=== PATIENT | female | born 2000 | race Caucasian/White ===

== ENCOUNTER 2018-08-24 13:33 | Emergency (ER) | payer OTHER, SELFPAY ==
[2018-08-24 13:36] VITALS: BP 149/88; PULSE 102; RESP 18; TEMP 36.7; O2SAT 99
--- NOTE | 2018-08-24 14:02 | DI.US.S_ITS ---
PROCEDURE: US PELVIC COMPLETE INDICATIONS: PAIN; POSITIVE URINE TECHNIQUE: Real-time scanning was performed of the pelvic organs, with image documentation. Additional endovaginal scanning was necessary due to incomplete visualization of the adnexal and endometrial structures by transabdominal scanning. COMPARISON: None. FINDINGS: Transabdominal scanning: Limited scanning through the kidneys shows no hydronephrosis. No pathologic free abdominal or pelvic fluid. Endovaginal scanning: Uterus: Uterus is normal in size at 6.9 x 4.2 x 4.7 cm. The endometrium measures 10.3 mm in combined thickness. Ovaries: 21 mm isoechoic solid mass with peripheral vascularity within the left ovary. Right ovary within normal limits. IMPRESSION: No evidence of intrauterine . 21 mm solid appearing nodule within the left ovary. Ectopic cannot be excluded. Follow up up ultrasound in 6 weeks is recommended to ensure resolution and exclude underlying malignancy. Dictated by: Edward Aranda M.D. on 08/24/2018 at 14:45 Approved by: Edward Aranda M.D. on 08/24/2018 at 14:47
--- NOTE | 2018-08-24 14:06 | ED.ABDPAIN ---
HPI - Abdominal Pain <ANNA Elias - Last Filed: 08/24/18 21:19> General Chief Complaint: Abdominal Pain Stated Complaint: R side abdominal pain Time Seen by Provider: 08/24/18 13:49 Source: patient Mode of arrival: ambulatory Limitations: no limitations History of Present Illness HPI narrative: 18-year-old female presents emergency department with her friend complaining of right-sided intermittent 8/10 stabbing abdominal pain for the past 2 months that lasts a few minutes to a few hours. Pain occurs when she is standing and is relieved when she sits down. Reports feeling nauseated for the past month with occasional increase 2/10 in dull achy headache better relieved with Tylenol and ibuprofen and only last a few hours. Patient also reports increase in vaginal discharge that is yellow and has a different odor but denies it being pay she or bowel. Patient denies dizziness, change in vision, chest pain, shortness of breath, vomiting or bowel changes, swelling in legs, or fevers or chills. Related Data Previous Rx's Medication Instructions Recorded metronidazole 500 mg PO BID 7 Days #14 tab 08/24/18 Allergies Allergy/AdvReac Type Severity Reaction Status Date / Time No Known Drug Allergies Allergy Verified 08/24/18 13:45 Review of Systems <ANNA Elias - Last Filed: 08/24/18 21:19> Review of Systems REVIEW OF SYSTEMS: GENERAL: Denies fever or chills. HENT: No head trauma, hearing loss or sore throat. EYES: No loss of vision, double vision, eye pain, or irritation. CARDIOVASCULAR: No chest pain or syncope. RESPIRATORY: No shortness of breath or cough. GASTROINTESTINAL: Complains of abdominal pain, see HPI. GENITOURINARY: Complains of right lower quadrant pain that MUSCULOSKELETA radiates to the back, see HPI. L: No pain, weakness, or deformities. INTEGUMENTARY: No rash, lesions, or pruritus. NEURO: No numbness, tingling, memory loss, or confusion. PSYCH: No behavior or mood changes. PFSH <ANNA Elias - Last Filed: 08/24/18 21:19> Medical History No significant medical problems (Acute) Social History Smoking Status: Current some day smoker Social History Smoking Status: Current some day smoker Exam <ANNA Elias - Last Filed: 08/24/18 21:19> Initial Vital Signs Initial Vital Signs: Vital Signs Temperature 98.1 F 08/24/18 13:36 Pulse Rate 102 H 08/24/18 13:36 Respiratory Rate 18 08/24/18 13:36 Blood Pressure 149/88 H 08/24/18 13:36 Pulse Oximetry 99 08/24/18 13:36 PHYSICAL EXAMINATION: GENERAL: Alert, and cooperative. Answers questions promptly and appropriately. Vital signs noted. HENT: Normocephalic, atraumatic. . EYES: PERRLA, conjunctiva pink, sclera white, no periorbital swelling. LYMPH: No lymphadenopathy. CARDIOVASCULAR: S1 and S2 sounds normal. Regular rate and rhythm, no murmurs, clicks, or bruits. No pedal edema. RESPIRATORY: Normal respiratory rate, trachea midline, airway patent. No stridor, nasal flaring or accessory muscle use. Lungs are clear in all robbins without wheeze, rhonchi, or crackles. GASTROINTESTINAL: Bowel sounds normoactive. Right lower quadrant tenderness with deep palpation, Abdomen is soft. No organomegaly but difficult to appreciate due to body habitus. PELVIC EXAM: Speculum and bimanual exam was performed with Maria A RN in the room as well as patient's friend per request. Vaginal rugae present, moderate amount of stick chunky discharge in the vaginal canal as well as around the cervix. Increased redness around cervix posterior vaginal canal. No cervical motion tenderness and axial tenderness, ovaries were not palpated, no tenderness to right or left pelvic area during minute exam. Vaginal swabs were obtained. Patient tolerated the exam well. MUSCULOSKELETAL: Normal gait and coordination. Equal tone and mass bilaterally. EXTREMITIES: CMS intact. Moves all extremities. SKIN: Warm, dry, soft, appropriate color for ethnicity. No lesions, rashes, or wounds. NEURO: Alert and Oriented X 3. Good coordination. No ataxia, or sensory deficits, or cognitive issues. PSYCH: Appropriate affect and mood. <Olivia Nicole DO - Last Filed: 08/25/18 19:44> Initial Vital Signs Initial Vital Signs: Vital Signs Temperature 98.1 F 08/24/18 13:36 Pulse Rate 102 H 08/24/18 13:36 Respiratory Rate 18 08/24/18 13:36 Blood Pressure 149/88 H 08/24/18 13:36 Pulse Oximetry 99 08/24/18 13:36 Course <ANNA Elias - Last Filed: 08/24/18 21:19> Orders Ordered: ED Orders 08/24/18 14:00 Complete Blood Count AUTO DIFF Stat Comprehensive Metabolic Panel Stat HCG Quantitative Stat Lipase Stat 08/24/18 14:02 US pelvic complete Stat 08/24/18 15:36 GC Screen Stat Wet Prep Tric BV [place] Stat Consultations Consultation #1: Patient staffed with Dr. Nicole. Vital Signs - 8 hr 08/24/18 13:36 08/24/18 15:43 08/24/18 16:50 Temperature 98.1 F Pulse Rate 102 H 99 H 94 H Respiratory Rate 18 18 Blood Pressure 149/88 H 130/73 Blood Pressure [Right Arm] 128/72 Pulse Oximetry 99 99 97 <Olivia Nicole DO - Last Filed: 08/25/18 19:44> Orders Ordered: ED Orders 08/24/18 14:00 Complete Blood Count AUTO DIFF Stat Comprehensive Metabolic Panel Stat HCG Quantitative Stat Lipase Stat 08/24/18 14:02 US pelvic complete Stat 08/24/18 15:36 GC Screen Stat Wet Prep Tric BV [place] Stat Vital Signs - 8 hr 08/24/18 13:36 08/24/18 15:43 08/24/18 16:50 Temperature 98.1 F Pulse Rate 102 H 99 H 94 H Respiratory Rate 18 18 Blood Pressure 149/88 H 130/73 Blood Pressure [Right Arm] 128/72 Pulse Oximetry 99 99 97 MDM - Abdominal Pain <ANNA Elias - Last Filed: 08/24/18 21:19> Medical Records Attestation: I reviewed the patient's medical records. Lab Data Attestation: I reviewed the patient's lab results. Result diagrams: 08/24/18 14:00 08/24/18 14:00 Lab Results 08/24/18 08/24/18 08/24/18 Range/Units 14:00 14:00 14:00 WBC 10.4 (4.5-11.0) X10^3/uL RBC 4.42 (4.0-5.2) X10^6/uL Hgb 13.5 (12.0-16.0) g/dL Hct 39.9 (36-46) % MCV 90.4 (80-100) fL MCH 30.5 (26-34) PG MCHC 33.7 (30-36) % RDW 12.4 (11.6-14.8) % Plt Count 340 (150-400) X10^3/uL Neut % (Auto) 67.4 (50-75) % Lymph % (Auto) 21.5 L (25-40) % [place] % (Auto) 8.2 (3-14) % Eos % (Auto) 2.5 (2-4) % Baso % (Auto) 0.4 (0-2) % Neut # (Auto) 7000 (9482-0386) /uL Lymph # (Auto) 2200 (4692-3698) /uL [place] # (Auto) 900 (0-900) /uL Eos # (Auto) 300 (0-450) /uL Baso # (Auto) 0 (0-100) /uL Sodium 140 (137-145) mmol/L Potassium 4.2 (3.4-5.1) mmol/L Chloride 104 (98-107) mmol/L Carbon Dioxide 27 (22-32) mmol/L BUN 9 (7-17) mg/dL Creatinine 0.60 (0.52-1.04) mg/dL Estimated GFR > 60.0 (>60) mL/min BUN/Creatinine Ratio 15.0 (6-22) Glucose 112 H (70-100) mg/dL Calcium 9.4 (8.4-10.2) mg/dL Total Bilirubin 0.3 (0.2-1.3) mg/dL AST 25 (14-36) IU/L ALT 30 (9-52) IU/L Alkaline Phosphatase 76 (38-126) U/L Total Protein 7.5 (6.3-8.2) g/dL Albumin 4.2 (3.5-5.0) g/dL Globulin 3.3 (1.7-4.1) g/dL Albumin/Globulin Ratio 1.3 (1.0-2.8) Lipase 97 (23-300) U/L HCG, Quant < 2.39 mIU/mL Point of care testing: Point of Care Testing Test Results Positive Urine Dip Bedside Urine Glucose Negative Bedside Urine Bilirubin - Negative Bedside Urine Ketone - Negative Urine Specific [place] 1.015 Bedside Urine Occult Blood - Negative Bedside Urine pH 6.5 Bedside Urine Protein - Negative Bedside Urine Urobilinogen - Negative Bedside Urine Nitrite - Negative Bedside Urine Leukocytes - Negative Esterase Imaging Data US - abdomen: Radiologist's impression: [address] [id number] Ultrasound Report Signed Patient: Deborah Flynn MMR#: [id number] : 2000Acct:[id number] Age/Sex: te of Service: 08/24/18 Loc: ED Accession Number: [id number] Procedure: US pelvic complete Ordering Provider: Arpita Landrum PROCEDURE: US PELVIC COMPLETE INDICATIONS: PAIN; POSITIVE URINE TECHNIQUE: Real-time scanning was performed of the pelvic organs, with image documentation. Additional endovaginal scanning was necessary due to incomplete visualization of the adnexal and endometrial structures by transabdominal scanning. COMPARISON: None. FINDINGS: Transabdominal scanning: Limited scanning through the kidneys shows no hydronephrosis. No pathologic free abdominal or pelvic fluid. Endovaginal scanning: Uterus: Uterus is normal in size at 6.9 x 4.2 x 4.7 cm. The endometrium measures 10.3 mm in combined thickness. Ovaries: 21 mm isoechoic solid mass with peripheral vascularity within the left ovary. Right ovary within normal limits. IMPRESSION: No evidence of intrauterine . 21 mm solid appearing nodule within the left ovary. Ectopic cannot be excluded. Follow up up ultrasound in 6 weeks is recommended to ensure resolution and exclude underlying malignancy. Dictated by: Edward Aranda M.D. on 08/24/2018 at 14:45 Approved by: Edward Aranda M.D. on 08/24/2018 at 14:47 MDM Narrative Medical decision making narrative: Unsure exact cause of patient's right quadrant pain. Low suspicion for tubal (serum hCG was negative (this was test was done as the urine hcg was barely positive), undetermined ovarian mass was on patient's left side (not with the pain was), patient has a positive for bacterial vaginosis, no adnexal or cervical motion tenderness, and patient states pain is intermittent for months. Detailed instructions for follow-up about mass were given to the patient. Patient's exam and lab tests are positive for clue cells indicating a high probability of bacterial vaginosis, Bactrim was used as patient's serum HCG was negative. Strict return precautions given. Also discussed control options with patient and suggest that if she wants reduce the risk of that she might consider switching to a better type of control as it is difficult for her to take pills on a regular basis, additionally suggested if she was hoping to get she should start taking vitamins. <Olivia Nicole, DO - Last Filed: 08/25/18 19:44> Lab Data Lab Results 08/24/18 08/24/18 08/24/18 Range/Units 14:00 14:00 14:00 WBC 10.4 (4.5-11.0) X10^3/uL RBC 4.42 (4.0-5.2) X10^6/uL Hgb 13.5 (12.0-16.0) g/dL Hct 39.9 (36-46) % MCV 90.4 (80-100) fL MCH 30.5 (26-34) PG MCHC 33.7 (30-36) % RDW 12.4 (11.6-14.8) % Plt Count 340 (150-400) X10^3/uL Neut % (Auto) 67.4 (50-75) % Lymph % (Auto) 21.5 L (25-40) % [place] % (Auto) 8.2 (3-14) % Eos % (Auto) 2.5 (2-4) % Baso % (Auto) 0.4 (0-2) % Neut # (Auto) 7000 (0673-9742) /uL Lymph # (Auto) 2200 (3409-7735) /uL [place] # (Auto) 900 (0-900) /uL Eos # (Auto) 300 (0-450) /uL Baso # (Auto) 0 (0-100) /uL Sodium 140 (137-145) mmol/L Potassium 4.2 (3.4-5.1) mmol/L Chloride 104 (98-107) mmol/L Carbon Dioxide 27 (22-32) mmol/L BUN 9 (7-17) mg/dL Creatinine 0.60 (0.52-1.04) mg/dL Estimated GFR > 60.0 (>60) mL/min BUN/Creatinine Ratio 15.0 (6-22) Glucose 112 H (70-100) mg/dL Calcium 9.4 (8.4-10.2) mg/dL Total Bilirubin 0.3 (0.2-1.3) mg/dL AST 25 (14-36) IU/L ALT 30 (9-52) IU/L Alkaline Phosphatase 76 (38-126) U/L Total Protein 7.5 (6.3-8.2) g/dL Albumin 4.2 (3.5-5.0) g/dL Globulin 3.3 (1.7-4.1) g/dL Albumin/Globulin Ratio 1.3 (1.0-2.8) Lipase 97 (23-300) U/L HCG, Quant < 2.39 mIU/mL Point of care testing: Point of Care Testing Test Results Positive Urine Dip Bedside Urine Glucose Negative Bedside Urine Bilirubin - Negative Bedside Urine Ketone - Negative Urine Specific [place] 1.015 Bedside Urine Occult Blood - Negative Bedside Urine pH 6.5 Bedside Urine Protein - Negative Bedside Urine Urobilinogen - Negative Bedside Urine Nitrite - Negative Bedside Urine Leukocytes - Negative Esterase Discharge Plan Departure Patient Disposition: Home Clinical Impression: Bacterial vaginosis, Abnormal ultrasound Discharge Date/Time: 08/24/18 16:50 Interventions: ED Discharge Assessment Last Done: 08/24/18 16:50 Instructions: DI for Bacterial Vaginosis Activity Restrictions/Additional Instructions: Thank you for entrusting me with your care today. As discussed, her ultrasound showed a mass on your left ovary, however a follow-up ultrasound in 6 weeks is recommended. Your blood tests are were negative for , despite your urine being positive it is highly unlikely that you are not at this time. However, continue to monitor your symptoms. There tests were positive for bacterial vaginosis, and I prescribed you antibiotic please take this for 7 days. Follow up with her primary care provider next week. Return to the emergency department if he develops severe abdominal pain, significant vaginal bleeding, dizziness, syncope, fever and chills, or chest pain. Prescriptions: New metronidazole 500 mg tablet 500 mg PO BID 7 Days Qty: 14 RF: 0 <Olivia Nicole DO - Last Filed: 08/25/18 19:44> Cosign ED Attending Cosignature Attestation: I was immediately available in the department for consultation. Documentation has been reviewed. I agree with assessment and plan.
--- NOTE | 2018-08-24 14:09 | ED_ITS ---
HPI - Abdominal Pain <ANNA Elias - Last Filed: 08/24/18 21:19> General Chief Complaint: Abdominal Pain Stated Complaint: R side abdominal pain Time Seen by Provider: 08/24/18 13:49 Source: patient Mode of arrival: ambulatory Limitations: no limitations History of Present Illness HPI narrative: 18-year-old female presents emergency department with her friend complaining of right-sided intermittent 8/10 stabbing abdominal pain for the past 2 months that lasts a few minutes to a few hours. Pain occurs when she is standing and is relieved when she sits down. Reports feeling nauseated for the past month with occasional increase 2/10 in dull achy headache better relieved with Tylenol and ibuprofen and only last a few hours. Patient also reports increase in vaginal discharge that is yellow and has a different odor but denies it being pay she or bowel. Patient denies dizziness, change in vision, chest pain, shortness of breath, vomiting or bowel changes, swelling in legs, or fevers or chills. Related Data Previous Rx's Medication Instructions Recorded metronidazole 500 mg PO BID 7 Days #14 tab 08/24/18 Allergies Allergy/AdvReac Type Severity Reaction Status Date / Time No Known Drug Allergies Allergy Verified 08/24/18 13:45 Review of Systems <ANNA Elias - Last Filed: 08/24/18 21:19> Review of Systems REVIEW OF SYSTEMS: GENERAL: Denies fever or chills. HENT: No head trauma, hearing loss or sore throat. EYES: No loss of vision, double vision, eye pain, or irritation. CARDIOVASCULAR: No chest pain or syncope. RESPIRATORY: No shortness of breath or cough. GASTROINTESTINAL: Complains of abdominal pain, see HPI. GENITOURINARY: Complains of right lower quadrant pain that MUSCULOSKELETA radiates to the back, see HPI. L: No pain, weakness, or deformities. INTEGUMENTARY: No rash, lesions, or pruritus. NEURO: No numbness, tingling, memory loss, or confusion. PSYCH: No behavior or mood changes. PFSH <ANNA Elias - Last Filed: 08/24/18 21:19> Medical History No significant medical problems (Acute) Social History Smoking Status: Current some day smoker Social History Smoking Status: Current some day smoker Exam <ANNA Elias - Last Filed: 08/24/18 21:19> Initial Vital Signs Initial Vital Signs: Vital Signs Temperature 98.1 F 08/24/18 13:36 Pulse Rate 102 H 08/24/18 13:36 Respiratory Rate 18 08/24/18 13:36 Blood Pressure 149/88 H 08/24/18 13:36 Pulse Oximetry 99 08/24/18 13:36 PHYSICAL EXAMINATION: GENERAL: Alert, and cooperative. Answers questions promptly and appropriately. Vital signs noted. HENT: Normocephalic, atraumatic. . EYES: PERRLA, conjunctiva pink, sclera white, no periorbital swelling. LYMPH: No lymphadenopathy. CARDIOVASCULAR: S1 and S2 sounds normal. Regular rate and rhythm, no murmurs, clicks, or bruits. No pedal edema. RESPIRATORY: Normal respiratory rate, trachea midline, airway patent. No strido r, nasal flaring or accessory muscle use. Lungs are clear in all robbins without wheeze, rhonchi, or crackles. GASTROINTESTINAL: Bowel sounds normoactive. Right lower quadrant tenderness with deep palpation, Abdomen is soft. No organomegaly but difficult to appreciate due to body habitus. PELVIC EXAM: Speculum and bimanual exam was performed with Maria A RN in the room as well as patient's friend per request. Vaginal rugae present, moderate amount of stick chunky discharge in the vaginal canal as well as around the cervix. Increased redness around cervix posterior vaginal canal. No cervical motion tenderness and axial tenderness, ovaries were not palpated, no tenderness to right or left pelvic area during minute exam. Vaginal swabs were obtained. Patient tolerated the exam well. MUSCULOSKELETAL: Normal gait and coordination. Equal tone and mass bilaterally. EXTREMITIES: CMS intact. Moves all extremities. SKIN: Warm, dry, soft, appropriate color for ethnicity. No lesions, rashes, or wounds. NEURO: Alert and Oriented X 3. Good coordination. No ataxia, or sensory deficits, or cognitive issues. PSYCH: Appropriate affect and mood. <Olivia Nicole DO - Last Filed: 08/25/18 19:44> Initial Vital Signs Initial Vital Signs: Vital Signs Temperature 98.1 F 08/24/18 13:36 Pulse Rate 102 H 08/24/18 13:36 Respiratory Rate 18 08/24/18 13:36 Blood Pressure 149/88 H 08/24/18 13:36 Pulse Oximetry 99 08/24/18 13:36 Course <ANNA Elias - Last Filed: 08/24/18 21:19> Orders Ordered: ED Orders 08/24/18 14:00 Complete Blood Count AUTO DIFF Stat Comprehensive Metabolic Panel Stat HCG Quantitative Stat Lipase Stat 08/24/18 14:02 US pelvic complete Stat 08/24/18 15:36 GC Screen Stat Wet Prep Tric BV Antoinette Stat Consultations Consultation #1: Patient staffed with Dr. Nicole. Vital Signs - 8 hr 08/24/18 13:36 08/24/18 15:43 08/24/18 16:50 Temperature 98.1 F Pulse Rate 102 H 99 H 94 H Respiratory Rate 18 18 Blood Pressure 149/88 H 130/73 Blood Pressure [Right Arm] 128/72 Pulse Oximetry 99 99 97 <Olivia Nicole DO - Last Filed: 08/25/18 19:44> Orders Ordered: ED Orders 08/24/18 14:00 Complete Blood Count AUTO DIFF Stat Comprehensive Metabolic Panel Stat HCG Quantitative Stat Lipase Stat 08/24/18 14:02 US pelvic complete Stat 08/24/18 15:36 GC Screen Stat Wet Prep Tric BV Antoinette Stat Vital Signs - 8 hr 08/24/18 13:36 08/24/18 15:43 08/24/18 16:50 Temperature 98.1 F Pulse Rate 102 H 99 H 94 H Respiratory Rate 18 18 Blood Pressure 149/88 H 130/73 Blood Pressure [Right Arm] 128/72 Pulse Oximetry 99 99 97 MDM - Abdominal Pain <ANNA Elias - Last Filed: 08/24/18 21:19> Medical Records Attestation: I reviewed the patient's medical records. Lab Data Attestation: I reviewed the patient's lab results. Result diagrams: 08/24/18 14:00 08/24/18 14:00 Lab Results 08/24/18 08/24/18 08/24/18 Range/Units 14:00 14:00 14:00 WBC 10.4 (4.5-11.0) X10^3/uL RBC 4.42 (4.0-5.2) X10^6/uL Hgb 13.5 (12.0-16.0) g/dL Hct 39.9 (36-46) % MCV 90.4 (80-100) fL MCH 30.5 (26-34) PG MCHC 33.7 (30-36) % RDW 12.4 (11.6-14.8) % Plt Count 340 (150-400) X10^3/uL Neut % (Auto) 67.4 (50-75) % Lymph % (Auto) 21.5 L (25-40) % Petroleum % (Auto) 8.2 (3-14) % Eos % (Auto) 2.5 (2-4) % Baso % (Auto) 0.4 (0-2) % Neut # (Auto) 7000 (2436-3244) /uL Lymph # (Auto) 2200 (6490-6140) /uL Petroleum # (Auto) 900 (0-900) /uL Eos # (Auto) 300 (0-450) /uL Baso # (Auto) 0 (0-100) /uL Sodium 140 (137-145) mmol/L Potassium 4.2 (3.4-5.1) mmol/L Chloride 104 (98-107) mmol/L Carbon Dioxide 27 (22-32) mmol/L BUN 9 (7-17) mg/dL Creatinine 0.60 (0.52-1.04) mg/dL Estimated GFR > 60.0 (>60) mL/min BUN/Creatinine Ratio 15.0 (6-22) Glucose 112 H (70-100) mg/dL Calcium 9.4 (8.4-10.2) mg/dL Total Bilirubin 0.3 (0.2-1.3) mg/dL AST 25 (14-36) IU/L ALT 30 (9-52) IU/L Alkaline Phosphatase 76 (38-126) U/L Total Protein 7.5 (6.3-8.2) g/dL Albumin 4.2 (3.5-5.0) g/dL Globulin 3.3 (1.7-4.1) g/dL Albumin/Globulin Ratio 1.3 (1.0-2.8) Lipase 97 (23-300) U/L HCG, Quant < 2.39 mIU/mL Point of care testing: Point of Care Testing Test Results Positive Urine Dip Bedside Urine Glucose Negative Bedside Urine Bilirubin - Negative Bedside Urine Ketone - Negative Urine Specific [place] 1.015 Bedside Urine Occult Blood - Negative Bedside Urine pH 6.5 Bedside Urine Protein - Negative Bedside Urine Urobilinogen - Negative Bedside Urine Nitrite - Negative Bedside Urine Leukocytes - Negative Esterase Imaging Data US - abdomen: Radiologist's impression: [address] [address] Ultrasound Report Signed Patient: Deborah Flynn MMR#: [id number] : 2000Acct:[id number] Age/Sex: te of Service: 08/24/18 Loc: ED Accession Number: [id number] Procedure: US pelvic complete Ordering Provider: Arpita Landrum PROCEDURE: US PELVIC COMPLETE INDICATIONS: PAIN; POSITIVE URINE TECHNIQUE: Real-time scanning was performed of the pelvic organs, with image documentation. Additional endovaginal scanning was necessary due to incomplete visualization of the adnexal and endometrial structures by transabdominal scanning. COMPARISON: None. FINDINGS: Transabdominal scanning: Limited scanning through the kidneys shows no hydronephrosis. No pathologic free abdominal or pelvic fluid. Endovaginal scanning: Uterus: Uterus is normal in size at 6.9 x 4.2 x 4.7 cm. The endometrium measures 10.3 mm in combined thickness. Ovaries: 21 mm isoechoic solid mass with peripheral vascularity within the left ovary. Right ovary within normal limits. IMPRESSION: No evidence of intrauterine . 21 mm solid appearing nodule within the left ovary. Ectopic cannot be excluded. Follow up up ultrasound in 6 weeks is recommended to ensure resolution and exclude underlying malignancy. Dictated by: Edward Aranda M.D. on 08/24/2018 at 14:45 Approved by: Edward Aranda M.D. on 08/24/2018 at 14:47 MDM Narrative Medical decision making narrative: Unsure exact cause of patient's right quadrant pain. Low suspicion for tubal (serum hCG was negative (this was test was done as the urine hcg was barely positive), undetermined ovarian mass was on patient's left side (not with the pain was), patient has a positive for bacterial vaginosis, no adnexal or cervical motion tenderness, and patient states pain is intermittent for months. Detailed instructions for follow-up about mass were given to the patient. Patient's exam and lab tests are positive for clue cells indicating a high probability of bacterial vaginosis, Bactrim was used as patient's serum HCG was negative. Strict return precautions given. Also discussed control options with patient and suggest that if she wants reduce the risk of that she might consider switching to a better type of control as it is difficult for her to take pills on a regular basis, additionally suggested if she was hoping to get she should start taking vitamins. <Olivia Nicole, DO - Last Filed: 08/25/18 19:44> Lab Data Lab Results 08/24/18 08/24/18 08/24/18 Range/Units 14:00 14:00 14:00 WBC 10.4 (4.5-11.0) X10^3/uL RBC 4.42 (4.0-5.2) X10^6/uL Hgb 13.5 (12.0-16.0) g/dL Hct 39.9 (36-46) % MCV 90.4 (80-100) fL MCH 30.5 (26-34) PG MCHC 33.7 (30-36) % RDW 12.4 (11.6-14.8) % Plt Count 340 (150-400) X10^3/uL Neut % (Auto) 67.4 (50-75) % Lymph % (Auto) 21.5 L (25-40) % Petroleum % (Auto) 8.2 (3-14) % Eos % (Auto) 2.5 (2-4) % Baso % (Auto) 0.4 (0-2) % Neut # (Auto) 7000 (0231-2107) /uL Lymph # (Auto) 2200 (5383-8124) /uL Petroleum # (Auto) 900 (0-900) /uL Eos # (Auto) 300 (0-450) /uL Baso # (Auto) 0 (0-100) /uL Sodium 140 (137-145) mmol/L Potassium 4.2 (3.4-5.1) mmol/L Chloride 104 (98-107) mmol/L Carbon Dioxide 27 (22-32) mmol/L BUN 9 (7-17) mg/dL Creatinine 0.60 (0.52-1.04) mg/dL Estimated GFR > 60.0 (>60) mL/min BUN/Creatinine Ratio 15.0 (6-22) Glucose 112 H (70-100) mg/dL Calcium 9.4 (8.4-10.2) mg/dL Total Bilirubin 0.3 (0.2-1.3) mg/dL AST 25 (14-36) IU/L ALT 30 (9-52) IU/L Alkaline Phosphatase 76 (38-126) U/L Total Protein 7.5 (6.3-8.2) g/dL Albumin 4.2 (3.5-5.0) g/dL Globulin 3.3 (1.7-4.1) g/dL Albumin/Globulin Ratio 1.3 (1.0-2.8) Lipase 97 (23-300) U/L HCG, Quant < 2.39 mIU/mL Point of care testing: Point of Care Testing Test Results Positive Urine Dip Bedside Urine Glucose Negative Bedside Urine Bilirubin - Negative Bedside Urine Ketone - Negative Urine Specific [place] 1.015 Bedside Urine Occult Blood - Negative Bedside Urine pH 6.5 Bedside Urine Protein - Negative Bedside Urine Urobilinogen - Negative Bedside Urine Nitrite - Negative Bedside Urine Leukocytes - Negative Esterase Discharge Plan Departure Patient Disposition: Home Clinical Impression: Bacterial vaginosis, Abnormal ultrasound Discharge Date/Time: 08/24/18 16:50 Interventions: ED Discharge Assessment Last Done: 08/24/18 16:50 Instructions: DI for Bacterial Vaginosis Activity Restrictions/Additional Instructions: Thank you for entrusting me with your care today. As discussed, her ultrasound showed a mass on your left ovary, however a follow-up ultrasound in 6 weeks is recommended. Your blood tests are were negative for , despite your urine being positive it is highly unlikely that you are not at this time. However, continue to monitor your symptoms. There tests were positive for bacterial vaginosis, and I prescribed you antibiotic please take this for 7 days. Follow up with her primary care provider next week. Return to the emergency department if he develops severe abdominal pain, significant vaginal bleeding, dizziness, syncope, fever and chills, or chest pain. Prescriptions: New metronidazole 500 mg tablet 500 mg PO BID 7 Days Qty: 14 RF: 0 <Olivia Nicole DO - Last Filed: 08/25/18 19:44> Cosign ED Attending Cosignature Attestation: I was immediately available in the department for consultation. Documentation has been reviewed. I agree with assessment and plan.
[2018-08-24 14:15] LABS: Add Manual Diff / Slide Review NO; Basophils Absolute Auto 0 /uL (0-100); Basophils Percent Auto 0.4 % (0-2); Eosinophils Absolute Auto 300 /uL (0-450); Eosinophils Percent Auto 2.5 % (2-4); Hematocrit 39.9 % (36-46); Hemoglobin 13.5 g/dL (12.0-16.0); Lymphocytes Absolute Auto 2200 /uL (1100-4500); Lymphocytes Percent Auto 21.5 % (25-40); Mean Corpuscular HGB Conc 33.7 % (30-36); Mean Corpuscular Hemoglobin 30.5 PG (26-34); Mean Corpuscular Volume 90.4 fL (80-100); Monocytes Absolute Auto 900 /uL (0-900); Monocytes Percent Auto 8.2 % (3-14); Neutrophils Absolute Auto 7000 /uL (1500-7000); Neutrophils Percent Auto 67.4 % (50-75); Platelet Count 340 X10^3/uL (150-400); Red Blood Cell Count 4.42 X10^6/uL (4.0-5.2); Red Cell Distribution Width 12.4 % (11.6-14.8); White Blood Cell Count 10.4 X10^3/uL (4.5-11.0)
[2018-08-24 14:24] LABS: Alanine Aminotransferase 30 IU/L (9-52); Albumin 4.2 g/dL (3.5-5.0); Albumin Globulin Ratio 1.3 (1.0-2.8); Alkaline Phosphatase 76 U/L (38-126); Aspartate Aminotransferase 25 IU/L (14-36); Bilirubin Total 0.3 mg/dL (0.2-1.3); Blood Urea Nitrogen 9 mg/dL (7-17); Calcium 9.4 mg/dL (8.4-10.2); Carbon Dioxide 27 mmol/L (22-32); Chloride 104 mmol/L (98-107); Estimated Glomerular Filt Rate > 60.0 mL/min (>60); Globulin 3.3 g/dL (1.7-4.1); Glucose 112 mg/dL (70-100); HEMOLYSIS < 15 (0-50); Lipase 97 U/L (23-300); Potassium 4.2 mmol/L (3.4-5.1); Sodium 140 mmol/L (137-145); Total Protein 7.5 g/dL (6.3-8.2)
[2018-08-24 14:41] LABS: HCG Quantitative /Beta subunit < 2.39 mIU/mL
[2018-08-24 15:43] VITALS: BP 128/72; PULSE 99; RESP 18; O2SAT 99
[2018-08-24 16:50] VITALS: BP 130/73; PULSE 94; O2SAT 97
[2018-09-11 12:22] LABS: C.trachomatis RNA NOT DETECTED
[2018-09-11 12:23] LABS: N.gonorrhoeae RNA NOT DETECTED
== END 2018-08-24 16:50 | disposition home or self-care (01) ==
PROVIDERS: Emergency Provider Nurse Practitioner
DX: N76.0 Acute vaginitis (principal); R93.89 Abnormal findings on diagnostic imaging of other specified body structures
CPT/HCPCS: 36415; 36591; 76830; 76856; 80053; 81003; 81025; 83690; 84702; 85025; 87081; 87210; 87491; 87591; 99282; 99284

== ENCOUNTER 2018-08-31 22:43 | Emergency (ER) | payer OTHER, SELFPAY ==
[2018-08-31 22:50] VITALS: BP 133/86; PULSE 94; RESP 18; TEMP 36.8; O2SAT 100; BMI 23.6
--- NOTE | 2018-08-31 23:11 | ED_ITS ---
HPI - Abdominal Pain General Chief Complaint: Abdominal Pain Stated Complaint: sharp left side abdominal area pain Time Seen by Provider: 08/31/18 22:54 Source: patient Mode of arrival: ambulatory Limitations: no limitations History of Present Illness HPI narrative: Patient is a 18-year-old female here for evaluation of left-sided abdominal pain. Patient states she was seen here in the emergency department a couple days ago where she states that she had a positive test. She stated that she had an an ultrasound performed and was told that she was 10 weeks . She was also given antibiotics for bacterial vaginosis. She followed up with her primary provider who told her that she had a negative test and was told to follow up in approximately 1 week for a repeat test. The time of her last exam in the emergency department she had right-sided abdominal pain. States that the left-sided abdominal pain started at the past 24 hours. Related Data Allergies Allergy/AdvReac Type Severity Reaction Status Date / Time No Known Drug Allergies Allergy Verified 08/24/18 13:45 Review of Systems Constitutional Denies fever(s) Cardiovascular Denies chest pain and Denies dyspnea Respiratory Denies dyspnea Gastrointestinal Gastrointestinal: Reports abdominal pain, Denies change in stool character, De nies nausea and Denies vomiting Genitourinary Denies urinary frequency, Denies dysuria, Denies pelvic pain and Denies vaginal discharge Musculoskeletal Denies myalgias and Denies arthralgias Integumentary/Breasts Denies new lesions and Denies rash Neurologic Denies behavioral changes Psychiatric Denies behavioral changes Hematologic/Lymphatic Denies easy bleeding and Denies easy bruising [facility] Medical History No significant medical problems (Acute) Social History Smoking Status: Current some day smoker Exam Initial Vital Signs Initial Vital Signs: Vital Signs Temperature 98.3 F 08/31/18 22:50 Pulse Rate 94 H 08/31/18 22:50 Respiratory Rate 18 08/31/18 22:50 Blood Pressure 133/86 08/31/18 22:50 Pulse Oximetry 100 08/31/18 22:50 Const General: cooperative, comfortable, well developed, well groomed and No acute distress Orientation: alert, awake and oriented x3 Resp Effort & Inspection: normal respiratory effort Auscultation: clear to auscultation bilaterally Cardio Rate: regular rate Rhythm: regular rhythm GI Inspection: non-distended Palpation: soft, No firm and No tender Back/Spine/Pelvis Back: No CVA tenderness Skin Lesions: no lesions Rashes: no rashes Neuro General: alert, awake and oriented x3 Cognition: normal cognition Speech: speech normal Motor: muscle tone normal throughout Extrem General: normal to inspection and capillary refill normal Psych Appearance: grossly normal and well kempt Course Orders Ordered: ED Orders 08/31/18 22:15 Urine Microscopic Stat 08/31/18 23:31 OB <= 14 weeks fetus Stat 08/31/18 23:50 ABO RH Type Stat Basic Metabolic Panel Stat Complete Blood Count AUTO DIFF Stat HCG Quantitative Stat Vital Signs - 8 hr 08/31/18 22:50 09/01/18 01:40 Temperature 98.3 F Pulse Rate 94 H 90 Respiratory Rate 18 18 Blood Pressure 133/86 130/80 Pulse Oximetry 100 99 MDM - Abdominal Pain Medical Records Attestation: I reviewed the patient's medical records. Lab Data Attestation: I reviewed the patient's lab results. Result diagrams: 08/31/18 23:50 08/31/18 23:50 Lab Results 08/31/18 08/31/18 08/31/18 Range/Units 22:15 23:50 23:50 WBC 12.7 H (4.5-11.0) X10^3/uL RBC 4.11 (4.0-5.2) X10^6/uL Hgb 12.7 (12.0-16.0) g/dL Hct 37.2 (36-46) % MCV 90.5 (80-100) fL MCH 30.9 (26-34) PG MCHC 34.2 (30-36) % RDW 12.7 (11.6-14.8) % Plt Count 276 (150-400) X10^3/uL Neut % (Auto) 62.7 (50-75) % Lymph % (Auto) 26.7 (25-40) % Walsh % (Auto) 7.4 (3-14) % Eos % (Auto) 2.6 (2-4) % Baso % (Auto) 0.6 (0-2) % Neut # (Auto) 8000 H (0452-5745) /uL Lymph # (Auto) 3400 (8791-6512) /uL Walsh # (Auto) 900 (0-900) /uL Eos # (Auto) 300 (0-450) /uL Baso # (Auto) 100 (0-100) /uL Sodium 140 (137-145) mmol/L Potassium 4.4 (3.4-5.1) mmol/L Chloride 108 H (98-107) mmol/L Carbon Dioxide 26 (22-32) mmol/L BUN 10 (7-17) mg/dL Creatinine 0.70 (0.52-1.04) mg/dL Estimated GFR > 60.0 (>60) mL/min BUN/Creatinine Ratio 14.3 (6-22) Glucose 96 (70-100) mg/dL Calcium 8.7 (8.4-10.2) mg/dL HCG, Quant < 2.39 mIU/mL Urine RBC None seen (0-5/HPF) Urine WBC None seen (0-5/HPF) Urine Bacteria None seen (None) Ur Culture Indicated? Cult not indicated Micro UA Comment Microscopic normal Blood Type 08/31/18 Range/Units 23:50 WBC (4.5-11.0) X10^3/uL RBC (4.0-5.2) X10^6/uL Hgb (12.0-16.0) g/dL Hct (36-46) % MCV (80-100) fL MCH (26-34) PG MCHC (30-36) % RDW (11.6-14.8) % Plt Count (150-400) X10^3/uL Neut % (Auto) (50-75) % Lymph % (Auto) (25-40) % Walsh % (Auto) (3-14) % Eos % (Auto) (2-4) % Baso % (Auto) (0-2) % Neut # (Auto) (7624-7226) /uL Lymph # (Auto) (3240-2365) /uL Walsh # (Auto) (0-900) /uL Eos # (Auto) (0-450) /uL Baso # (Auto) (0-100) /uL Sodium (137-145) mmol/L Potassium (3.4-5.1) mmol/L Chloride (98-107) mmol/L Carbon Dioxide (22-32) mmol/L BUN (7-17) mg/dL Creatinine (0.52-1.04) mg/dL Estimated GFR (>60) mL/min BUN/Creatinine Ratio (6-22) Glucose (70-100) mg/dL Calcium (8.4-10.2) mg/dL HCG, Quant mIU/mL Urine RBC (0-5/HPF) Urine WBC (0-5/HPF) Urine Bacteria (None) Ur Culture Indicated? Micro UA Comment Blood Type A Positive Point of care testing: Point of Care Testing Test Results Negative Urine Dip Bedside Urine Glucose Negative Bedside Urine Bilirubin - Negative Bedside Urine Ketone - Negative Urine Specific [place] 1.025 Bedside Urine Occult Blood - Negative Bedside Urine pH 6.5 Bedside Urine Protein - Negative Bedside Urine Urobilinogen +/- 1mg Bedside Urine Nitrite - Negative Bedside Urine Leukocytes +/- 15 Esterase Imaging Data US - abdomen: Radiologist's impression: No IUP or adnexal mass seen. Correlation with beta HCG recommended. 1.7 cm hypoechoic lesion of the left ovary may represent complex cyst. Comparison with prior studies in follow-up in 60 weeks recommended. MDM Narrative Medical decision making narrative: Somewhat of a confusing encounter here in the emergency department. Upon review of her prior visit it appeared that she had a weakly positive urine test but a negative HCG quantitative. The ultrasound performed at that time did not show any intrauterine . It did show a left ovarian mass. There is no reports of a 10 week fetus. When I confronted the patient about this. She mentioned something about her confusing this result with another individual. Unsure as to exactly what she meant regarding this statement. Her urine test is negative. Her matthew titative HCG today was negative. Repeat ultrasound shows a left ovarian complex cyst and no intrauterine . I once again tried to make it abundantly clear to the patient that she was not today and it did not appear that she was a couple days ago. I did inform her that she needed to contact her primary provider for a follow-up with the ovarian cyst. She has a benign ab dominal exam. She has no vaginal discharge or vaginal bleeding. Low suspicion for kidney stones or other acute inter abdominal pathology. She is currently taking the antibiotics she was prescribed a couple days ago for the bacterial vaginosis. She was given return precautions and follow-up instructions. She expressed understanding and agreement with plan Discharge Plan Departure Patient Disposition: Home Clinical Impression: Abdominal pain Qualifiers: Abdominal location: left lower quadrant Qualified Code(s): R10.32 - Left lower quadrant pain Ovarian cyst Qualifiers: Laterality: left Qualified Code(s): N83.202 - Unspecified ovarian cyst, left side Discharge Date/Time: 09/01/18 01:40 Interventions: ED Discharge Assessment Last Done: 09/01/18 01:40 Instructions: DI for Abdominal Pain-Adult Activity Restrictions/Additional Instructions: Your ultrasound and blood work today does not show that your . There was a left-sided ovarian cyst noted on the ultrasound. This does need to be followed up by your primary provider. Return to the emergency department for any new or worsening symptoms. Continue your medications that you were given at your last visit here as directed.
[2018-08-31 23:28] LABS: Bacteria Urine None Seen; RBC Urine None Seen (0-5/HPF); WBC Urine None Seen (0-5/HPF)
--- NOTE | 2018-08-31 23:31 | DI.US.S_ITS ---
PROCEDURE: US OB <= 14 WEEKS FETUS INDICATIONS: LT ADNEXAL PAIN TECHNIQUE: A pelvic ultrasound was performed utilizing transabdominal and endovaginal imaging. COMPARISON: [facility], US, US PELVIC COMPLETE, 08/24/2018, 15:07. FINDINGS: Uterus: Uterus was not well evaluated on the transabdominal images. Therefore, an endovaginal ultrasound was performed. The uterus is normal in size and measures 7.1 x 3.6 x 4.5 cm. No focal myometrial lesions are identified. The endometrium has a homogeneous appearance and measures up to 8 mm in diameter. No significant fluid is seen within the endometrium. No gestational sac is identified. The cervix is unremarkable. Ovaries: The right ovary measures 3.6 x 1.6 x 1.2 cm. The left ovary measures 3.8 x 1.3 x 1.3 cm. No cystic or solid masses are identified. There may be a collapsing follicle on the left ovary measuring up to 1.7 cm, given its collapsing appearance. Previously seen echogenic nodule within the left kidney has resolved. No adnexal/ectopic is identified. Other: Small amount of free fluid is seen within the pelvis. No drainable or loculated fluid collections are identified. No adnexal masses are appreciated. The imaged portions of the urinary bladder are grossly unremarkable, but not adequately evaluated. IMPRESSION: 1. No evidence of an intrauterine or extrauterine . 2. Previously seen left ovarian echogenic nodule appears to represent a collapsing hemorrhagic cyst measuring up to 1.7 cm on the current study. As previously mentioned on 08/24/18, a 6 week followup ultrasound is recommended to document complete resolution. 3. Unremarkable uterus and right ovary. Note: The preliminary [facility] report and the final report are concordant. Dictated by: Bharat Christianson M.D. on 09/01/2018 at 7:30 Approved by: Bharat Christianson M.D. on 09/01/2018 at 7:37
[2018-08-31 23:37] LABS: Culture Indicated Urine Cult Not Indicated; Urine Comments Microscopic Normal
[2018-09-01 00:02] LABS: Add Manual Diff / Slide Review NO; Basophils Absolute Auto 100 /uL (0-100); Basophils Percent Auto 0.6 % (0-2); Eosinophils Absolute Auto 300 /uL (0-450); Eosinophils Percent Auto 2.6 % (2-4); Hematocrit 37.2 % (36-46); Hemoglobin 12.7 g/dL (12.0-16.0); Lymphocytes Absolute Auto 3400 /uL (1100-4500); Lymphocytes Percent Auto 26.7 % (25-40); Mean Corpuscular HGB Conc 34.2 % (30-36); Mean Corpuscular Hemoglobin 30.9 PG (26-34); Mean Corpuscular Volume 90.5 fL (80-100); Monocytes Absolute Auto 900 /uL (0-900); Monocytes Percent Auto 7.4 % (3-14); Neutrophils Absolute Auto 8000 /uL (1500-7000); Neutrophils Percent Auto 62.7 % (50-75); Platelet Count 276 X10^3/uL (150-400); Red Blood Cell Count 4.11 X10^6/uL (4.0-5.2); Red Cell Distribution Width 12.7 % (11.6-14.8); White Blood Cell Count 12.7 X10^3/uL (4.5-11.0)
[2018-09-01 00:12] LABS: BUN Creatinine Ratio 14.3 (6-22); Blood Urea Nitrogen 10 mg/dL (7-17); Calcium 8.7 mg/dL (8.4-10.2); Carbon Dioxide 26 mmol/L (22-32); Chloride 108 mmol/L (98-107); Estimated Glomerular Filt Rate > 60.0 mL/min (>60); Glucose 96 mg/dL (70-100); HEMOLYSIS 15 (0-50); Potassium 4.4 mmol/L (3.4-5.1); Sodium 140 mmol/L (137-145)
[2018-09-01 00:29] LABS: HCG Quantitative /Beta subunit < 2.39 mIU/mL
[2018-09-01 01:40] VITALS: BP 130/80; PULSE 90; RESP 18; O2SAT 99
== END 2018-09-01 01:40 | disposition home or self-care (01) ==
PROVIDERS: Emergency Provider Emergency Medicine
DX: R10.32 Left lower quadrant pain (principal); N83.202 Unspecified ovarian cyst, left side
CPT/HCPCS: 36591; 76801; 76830; 80048; 81003; 81015; 81025; 84702; 85025; 86900; 86901; 99282; 99284

== ENCOUNTER 2018-11-08 18:24 | Emergency (ER) | payer OTHER, SELFPAY ==
[2018-11-08 18:54] VITALS: BP 118/80; PULSE 120; RESP 22; TEMP 38.8; O2SAT 100; BMI 39.9
[2018-11-08 19:26] LABS: Influenza A and B by PCR Rapid Negative (Negative)
--- NOTE | 2018-11-08 20:09 | ED.URI ---
HPI - URI/Sore Throat General Chief Complaint: Upper Respiratory Symptoms Stated Complaint: FEVER HEADACHE LEFT LOWER BACK PAIN Time Seen by Provider: 11/08/18 20:00 Source: patient Mode of arrival: ambulatory Limitations: no limitations History of Present Illness HPI Narrative: 18-year-old female nonsmoker, fully immunized with benign medical history presents with a chief complaint of generally feeling unwell for the past few days. She has had a low-grade fever, generalized headache and body aches along with a dry cough, nausea, back pain. She denies nausea, vomiting or diarrhea. She denies dysuria, frequency or urgency. 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 Complaint: fever, cough, sore throat, rhinorrhea and nasal congestion Onset (ago): day(s) Duration: constant Severity: moderate Relieving factors: nothing Exacerbating factors: nothing Description of mucous: clear Able to tolerate fluids by mouth: Yes Associated symptoms: fever, chills, myalgias, headache, rhinorrhea, nasal congestion and sore throat Related Data Previous Rx's Medication Instructions Recorded ketorolac 10 mg PO Q6H PRN #14 tab 11/09/18 ondansetron 4 mg PO TID-QID PRN #10 tab 11/09/18 Allergies Allergy/AdvReac Type Severity Reaction Status Date / Time No Known Drug Allergies Allergy Verified 11/08/18 18:57 Review of Systems Constitutional Constitutional: Reports chills, Reports fatigue, Reports fever(s), Denies frequent falls, Denies lethargy and Denies weakness Eyes Eyes: Denies change in vision, Denies eye discharge, Denies irritation and Denies loss of vision ENT Ears, Nose, Mouth, and Throat: Denies change in voice, Denies dizziness, Reports nasal congestion, Denies neck pain, Reports sore throat and Denies throat swelling Cardiovascular Cardiovascular: Denies chest pain, Denies irregular heart rhythm, Denies lightheadedness, Denies palpitations, Denies dyspnea, Denies dyspnea on exertion and Denies orthopnea Respiratory Respiratory: Reports cough, Denies dyspnea, Denies dyspnea on exertion and Denies wheezing Gastrointestinal Gastrointestinal: Denies abdominal pain, Denies change in bowel habits, Denies diarrhea, Denies nausea and Denies vomiting Genitourinary Genitourinary: Denies hematuria, Denies flank pain, Denies urinary incontinence and Denies urinary urgency Musculoskeletal Musculoskeletal: Reports back pain, Denies muscle weakness, Denies neck pain, Denies numbness and Denies tingling Integumentary/Breasts Skin/Breast: Denies pruritus, Denies erythema, Denies rash and Denies wounds Neurologic Neurologic: Denies behavioral changes, Denies confusion, Denies dizziness, Denies frequent falls, Denies loss of vision, Denies numbness, Denies tingling and Denies weakness Psychiatric Psychiatric: Denies anxiety, Denies behavioral changes, Denies confusion, Denies depression, Denies homicidal ideation and Denies suicidal ideation Endocrine Endocrine: Reports fatigue, Denies flushing and Denies palpitations Hematologic/Lymphatic Hematologic/Lymphatic: Denies easy bruising Allergic/Immunologic Allergic/Immunologic: Denies urticaria, Denies throat swelling and Denies wheezing [facility] Medical History No significant medical problems (Acute) Social History Smoking Status: Former smoker Social History Smoking Status: Former smoker Exam Narrative Exam Narrative: GENERAL: [18] year old patient appears stated age. Well-nourished, well-developed patient, in mild distress. Tearful, obviously not feeling well, GCS 15 HEAD: Atraumatic. Normocephalic. EYES: Pupils equal round and reactive. Extraocular motions intact. No scleral icterus. No injection or drainage. ENT: Nose without bleeding, purulent drainage. Throat without erythema, tonsillar hypertrophy or exudate. Airway patent. NECK: Trachea midline. Non tender, no meningeal signs, full painless range of motion of neck CARDIOVASCULAR: Regular rate and rhythm without murmurs, gallops, or rubs. RESPIRATORY: Clear to auscultation. Breath sounds equal bilaterally. No wheezes, rales, or rhonchi. GASTROINTESTINAL: Abdomen soft, non-tender, nondistended. EXTREMITIES: No edema or joint tenderness. BACK: Nontender without deformity or crepitance. No flank tenderness. NEURO: AOx3. SKIN: No rash or erythema of visible areas Initial Vital Signs Initial Vital Signs: Vital Signs Temperature 101.9 F H 11/08/18 18:54 Pulse Rate 120 H 09/06/19 18:54 Respiratory Rate 22 11/08/18 18:54 Blood Pressure 118/80 11/08/18 18:54 Pulse Oximetry 100 11/08/18 18:54 Course Orders Ordered: ED Orders 11/08/18 20:55 Basic Metabolic Panel Stat Blood Culture Stat Complete Blood Count AUTO DIFF Stat Lactate (Lactic Acid) Stat Procalcitonin Stat Discontinued Medications Sodium Chloride (Normal Saline 0.9%) 1,000 mls @ 1,000 mls/hr IV BOLUS ONE Stop: 11/08/18 21:16 Last Infusion: 11/08/18 22:55 Dose: 0 mls/hr Documented by: Admin: 11/08/18 21:32 Dose: 1,000 mls/hr Documented by: GABRIELLE Sodium Chloride (Normal Saline 0.9%) 1,000 mls @ 1,000 mls/hr IV BOLUS ONE Stop: 11/09/18 00:50 Last Infusion: 11/09/18 01:02 Dose: 0 mls/hr Documented by: Admin: 11/08/18 23:56 Dose: 1,000 mls/hr Documented by: BRIANA Ketorolac Tromethamine (Toradol) 15 mg IV NOW ONE Stop: 11/08/18 20:18 Last Admin: 11/08/18 21:31 Dose: 15 mg Documented by: GABRIELLE Vital Signs Vital signs: Vital Signs - 8 hr 11/08/18 22:14 11/08/18 23:13 11/08/18 23:57 Temperature 99.3 F Pulse Rate 106 H 103 H Respiratory Rate 17 19 Blood Pressure Blood Pressure [Right Arm] 106/54 L 91/39 L Pulse Oximetry 99 97 11/09/18 01:05 Temperature Pulse Rate 100 H Respiratory Rate Blood Pressure 115/64 Blood Pressure [Right Arm] Pulse Oximetry 99 MDM - URI/Sore Throat Differential Diagnosis Differential diagnosis: Likely upper respiratory infection, viral infection and influenza Lab Data Result diagrams: 11/08/18 20:55 11/08/18 20:55 Labs: Lab Results 11/08/18 11/08/18 11/08/18 Range/Units 19:00 20:55 20:55 WBC 14.8 H (4.5-11.0) X10^3/uL RBC 4.19 (4.0-5.2) X10^6/uL Hgb 12.8 (12.0-16.0) g/dL Hct 37.0 (36-46) % MCV 88.2 (80-100) fL MCH 30.6 (26-34) PG MCHC 34.7 (30-36) % RDW 12.7 (11.6-14.8) % Plt Count 274 (150-400) X10^3/uL Neut % (Auto) 85.4 H (50-75) % Lymph % (Auto) 8.1 L (25-40) % [place] % (Auto) 5.9 (3-14) % Eos % (Auto) 0.3 L (2-4) % Baso % (Auto) 0.3 (0-2) % Neut # (Auto) 27051 H (8817-3936) /uL Lymph # (Auto) 1200 (8952-4251) /uL [place] # (Auto) 900 (0-900) /uL Eos # (Auto) 0 (0-450) /uL Baso # (Auto) 0 (0-100) /uL Sodium 136 L (137-145) mmol/L Potassium 3.8 (3.4-5.1) mmol/L Chloride 101 (98-107) mmol/L Carbon Dioxide 26 (22-32) mmol/L BUN 10 (7-17) mg/dL Creatinine 0.60 (0.52-1.04) mg/dL Estimated GFR > 60.0 (>60) mL/min BUN/Creatinine Ratio 16.7 (6-22) Glucose 115 H (70-100) mg/dL Lactate (0.7-2.1) mmol/L Calcium 8.9 (8.4-10.2) mg/dL Procalcitonin (<0.5) ng/mL Influenza A & B (PCR) Negative (Negative) 11/08/18 11/08/18 Range/Units 20:55 20:55 WBC (4.5-11.0) X10^3/uL RBC (4.0-5.2) X10^6/uL Hgb (12.0-16.0) g/dL Hct (36-46) % MCV (80-100) fL MCH (26-34) PG MCHC (30-36) % RDW (11.6-14.8) % Plt Count (150-400) X10^3/uL Neut % (Auto) (50-75) % Lymph % (Auto) (25-40) % [place] % (Auto) (3-14) % Eos % (Auto) (2-4) % Baso % (Auto) (0-2) % Neut # (Auto) (5401-1226) /uL Lymph # (Auto) (2837-2744) /uL [place] # (Auto) (0-900) /uL Eos # (Auto) (0-450) /uL Baso # (Auto) (0-100) /uL Sodium (137-145) mmol/L Potassium (3.4-5.1) mmol/L Chloride (98-107) mmol/L Carbon Dioxide (22-32) mmol/L BUN (7-17) mg/dL Creatinine (0.52-1.04) mg/dL Estimated GFR (>60) mL/min BUN/Creatinine Ratio (6-22) Glucose (70-100) mg/dL Lactate 1.3 (0.7-2.1) mmol/L Calcium (8.4-10.2) mg/dL Procalcitonin < 0.05 (<0.5) ng/mL Influenza A & B (PCR) (Negative) Imaging Data Chest x-ray: Radiologist's impression: Deborah Flynn M 18 F 2000 [place] [address] XRay Report Signed Patient: Deborah Flynn [facility]#: [id number] : 2000Acct:[id number] Age/Sex: 18 / FDate of Service: 11/08/18 Loc: ED Accession Number: [id number] Procedure: XR chest 2V Ordering Provider: Emanuel Cleveland D.O. PROCEDURE: XR CHEST 2V INDICATIONS: cough, fever TECHNIQUE: 2 views of the chest were acquired. COMPARISON: None. FINDINGS: Surgical changes and devices: None. Lungs and pleura: No acute consolidation. Scattered subsegmental atelectasis and/or scarring. No pleural effusion. No pneumothorax. Mediastinum: Mediastinal contours are normal. Heart size is normal. Bones and chest wall: No suspicious bony abnormalities. Soft tissues appear unremarkable. IMPRESSION: No acute disease Dictated by: Siva Dickinson M.D. on 11/08/2018 at 21:29 Approved by: Siva Dickinson M.D. on 11/08/2018 at 21:33 [facility] Narrative Medical decision making narrative: Multiple etiologies for patient's symptoms considered including: [Flu versus pneumonia versus viral syndrome versus pyelonephritis versus pharyngitis versus other] Patient's symptoms improved or duration of stay with above-stated therapies. Findings and discharge diagnosis discussed with patient/family followed by verbalization of understanding Return precautions discussed with patient/family whom verbalize understanding. Discharge Plan Departure Patient Disposition: Home Clinical Impression: Viral infection Discharge Date/Time: 11/09/18 01:06 Instructions: DI for Viral Syndrome Activity Restrictions/Additional Instructions: *You have been diagnosed with [acute viral syndrome] *What to do: *Take medications as directed *Follow up with your primary care provider in 2-3 days, call for an appointment. Let them know you were seen in the Emergency Department and that we ask that you be seen in follow up *Return to ER if you should have any new, worsening or concerning symptoms Prescriptions: New ketorolac 10 mg tablet 10 mg PO Q6H PRN (Reason: pain) Qty: 14 RF: 0 ondansetron 4 mg tablet,disintegrating 4 mg PO TID-QID PRN (Reason: nausea and vomiting) Qty: 10 RF: 0
--- NOTE | 2018-11-08 20:24 | DI.RAD.S_ITS ---
PROCEDURE: XR CHEST 2V INDICATIONS: cough, fever TECHNIQUE: 2 views of the chest were acquired. COMPARISON: None. FINDINGS: Surgical changes and devices: None. Lungs and pleura: No acute consolidation. Scattered subsegmental atelectasis and/or scarring. No pleural effusion. No pneumothorax. Mediastinum: Mediastinal contours are normal. Heart size is normal. Bones and chest wall: No suspicious bony abnormalities. Soft tissues appear unremarkable. IMPRESSION: No acute disease Dictated by: Siva Dickinson M.D. on 11/08/2018 at 21:29 Approved by: Siva Dickinson M.D. on 11/08/2018 at 21:33
[2018-11-08 21:01] VITALS: BP 134/73; PULSE 115; RESP 20; O2SAT 100
[2018-11-08 21:13] LABS: Add Manual Diff / Slide Review NO; Basophils Absolute Auto 0 /uL (0-100); Basophils Percent Auto 0.3 % (0-2); Eosinophils Absolute Auto 0 /uL (0-450); Eosinophils Percent Auto 0.3 % (2-4); Hemoglobin 12.8 g/dL (12.0-16.0); Lymphocytes Absolute Auto 1200 /uL (1100-4500); Lymphocytes Percent Auto 8.1 % (25-40); Mean Corpuscular HGB Conc 34.7 % (30-36); Mean Corpuscular Hemoglobin 30.6 PG (26-34); Mean Corpuscular Volume 88.2 fL (80-100); Monocytes Absolute Auto 900 /uL (0-900); Monocytes Percent Auto 5.9 % (3-14); Neutrophils Absolute Auto 12600 /uL (1500-7000); Neutrophils Percent Auto 85.4 % (50-75); Platelet Count 274 X10^3/uL (150-400); Red Blood Cell Count 4.19 X10^6/uL (4.0-5.2); Red Cell Distribution Width 12.7 % (11.6-14.8); White Blood Cell Count 14.8 X10^3/uL (4.5-11.0)
[2018-11-08 21:18] LABS: Lactate (Lactic Acid) 1.3 mmol/L (0.7-2.1)
[2018-11-08 21:19] LABS: BUN Creatinine Ratio 16.7 (6-22); Blood Urea Nitrogen 10 mg/dL (7-17); Calcium 8.9 mg/dL (8.4-10.2); Carbon Dioxide 26 mmol/L (22-32); Chloride 101 mmol/L (98-107); Estimated Glomerular Filt Rate > 60.0 mL/min (>60); Glucose 115 mg/dL (70-100); HEMOLYSIS < 15 (0-50); Potassium 3.8 mmol/L (3.4-5.1); Sodium 136 mmol/L (137-145)
[2018-11-08] MEDS: KETOROLAC 60 MG/2 ML VIAL 15 MG IV (21:31)
[2018-11-08] MEDS: SODIUM CHLORIDE 0.9% 1,000 ML 1000 ML IV ×2 (21:32→23:56)
[2018-11-08 21:33] LABS: Procalcitonin < 0.05 ng/mL (<0.5)
[2018-11-08 22:14] VITALS: BP 106/54; PULSE 106; RESP 17; O2SAT 99
[2018-11-08 23:13] VITALS: BP 91/39; PULSE 103; RESP 19; O2SAT 97
[2018-11-08 23:57] VITALS: TEMP 37.4
[2018-11-09 01:05] VITALS: BP 115/64; PULSE 100; O2SAT 99
== END 2018-11-09 01:06 | disposition home or self-care (01) ==
PROVIDERS: Emergency Provider Emergency Medicine
DX: B34.9 Viral infection, unspecified (principal)
CPT/HCPCS: 36591; 71046; 80048; 83605; 84145; 85025; 87040; 87400; 87502; 96361; 96374; 99283; 99284; J1885

== ENCOUNTER 2018-12-25 19:07 | Emergency (ER) | payer OTHER, SELFPAY ==
[2018-12-25 19:26] VITALS: BP 126/85; PULSE 74; RESP 20; TEMP 36.6; O2SAT 99
[2018-12-25 20:45] VITALS: BP 109/52; PULSE 81; O2SAT 99
[2018-12-25 21:00] VITALS: BP 117/68; PULSE 84; RESP 17; O2SAT 100
--- NOTE | 2018-12-25 21:14 | DI.US.S_ITS ---
PROCEDURE: US ABDOMEN LIMITED INDICATIONS: RIGHT UPPER QUADRANT PAIN TECHNIQUE: Real-time focused scanning was performed of the abdomen, with image documentation. COMPARISON: None. FINDINGS: Diffuse increased echogenicity of the liver is consistent with hepatic steatosis. No focal liver mass. Gallbladder is unremarkable. No gallbladder wall thickening. No stones. No pain on examination. No biliary ductal dilatation. Common duct measures 3 mm. IMPRESSION: 1. Diffuse hepatic steatosis. 2. Unremarkable gallbladder. Comment: Final report is concordant with preliminary interpretation provided by [facility]. Dictated by: Musa Saravia M.D. on 12/26/2018 at 8:21 Approved by: Musa Saravia M.D. on 12/26/2018 at 8:23
--- NOTE | 2018-12-25 21:15 | ED.ABDPAIN ---
HPI - Abdominal Pain General Chief Complaint: Abdominal Pain Stated Complaint: BACK PAIN, DIZZY, ABDOMINAL PAIN Time Seen by Provider: 12/25/18 20:59 Source: patient Mode of arrival: Ambulatory Limitations: no limitations History of Present Illness HPI narrative: Patient is a 18-year-old female who presents with right-sided abdominal pain ongoing for last 2-3 days. She denies nausea or vomiting she has pain all over her abdomen but more so on the right side. sHe has not had any fever or chills. She has taken ibuprofen for pain but in take any today consistent have any. She also took 2 tests at home which were negative and again her test here in the ED is negative. He has not had a menstrual period since October. She denies any painful frequent urination no hematuria. Related Data Previous Rx's Medication Instructions Recorded ketorolac 10 mg PO Q6H PRN #14 tab 11/09/18 ondansetron 4 mg PO TID-QID PRN #10 tab 11/09/18 Allergies Allergy/AdvReac Type Severity Reaction Status Date / Time No Known Drug Allergies Allergy Verified 11/08/18 18:57 Review of Systems Review of Systems Narrative: GENERAL: Denies chills, fatigue, malaise, fever, sweats, travel HEENT: Denies sinus pain, ear pain, sore throat, difficulty swallowing, neck pain RESPIRATORY: Denies dyspnea, cough, wheezing, hemoptysis, sputum. CARDIOVASCULAR: Denies chest pain, palpitations, orthopnea, edema GASTROINTESTINAL: See HPI : Denies dysuria, frequency, incontinence, hematuria, urinary retention, flank pain. MUSCULOSKELETAL: Denies weakness, joint pain, or bony pain SKIN: No rash, no erythema, no pruritus NEUROLOGIC: Denies weakness, dizziness, headache, numbness, change in speech, confusion PSYCHIATRIC: No concerning psychosocial issues. 12 point review of systems is negative except for those stated above and HPI Patient History Medical History No significant medical problems (Acute) Social History Smoking Status: Former smoker alcohol intake frequency: other Substance Use Type: does not use Exam Initial Vital Signs Initial Vital Signs: Vital Signs Temperature 97.8 F 12/25/18 19:26 Pulse Rate 74 12/25/18 19:26 Respiratory Rate 20 12/25/18 19:26 Blood Pressure 126/85 12/25/18 19:26 Pulse Oximetry 99 12/25/18 19:26 GENERAL: Overweight well-appearing female and in no acute distress. HEENT: Head atraumatic,EOMI, pupils reactive, face symmetric CARDIOVASCULAR: Regular rate and rhythm without murmurs, rubs or gallops. RESPIRATORY: Breath sounds equal bilaterally, no wheezes rales or rhonchi. ABDOMEN: Soft, tenderness right upper quadrant no guarding or rebound mild tenderness in her lower abdomen as well some tenderness on the lower left side : No CVA tenderness EXTREMITIES: Normal range of motion, no clubbing or edema. Neurovascularly intact NEUROLOGICAL: Alert and oriented x4.Normal gait and speech. Cranial nerves II through XII grossly intact. SKIN: Warm, dry, no laceration, no petechiae, no rashes or lesions. Course Orders Ordered: ED Orders 12/25/18 21:14 US abdomen limited Stat 12/25/18 21:15 Complete Blood Count AUTO DIFF Stat Comprehensive Metabolic Panel Stat Lipase Stat Discontinued Medications Ketorolac Tromethamine (Toradol) 30 mg IV NOW ONE Stop: 12/25/18 21:14 Last Admin: 12/25/18 21:29 Dose: 30 mg Documented by: [email or web address] Vital Signs Vital signs: Vital Signs - 8 hr 12/25/18 19:26 12/25/18 20:45 12/25/18 21:00 Temperature 97.8 F Pulse Rate 74 81 84 Respiratory Rate 20 17 Blood Pressure 126/85 Blood Pressure [Right Arm] 109/52 L 117/68 Pulse Oximetry 99 99 100 12/25/18 22:00 12/25/18 23:00 12/26/18 00:12 Temperature Pulse Rate 86 87 78 Respiratory Rate 16 17 14 Blood Pressure 101/61 Blood Pressure [Right Arm] 116/49 L 124/74 Pulse Oximetry 100 99 100 MDM - Abdominal Pain Lab Data Attestation: I reviewed the patient's lab results. Result diagrams: 12/25/18 21:15 12/25/18 21:15 Labs: Lab Results 12/25/18 12/25/18 Range/Units 21:15 21:15 WBC 12.8 H (4.5-11.0) X10^3/uL RBC 4.26 (4.0-5.2) X10^6/uL Hgb 13.2 (12.0-16.0) g/dL Hct 38.6 (36-46) % MCV 90.6 (80-100) fL MCH 31.1 (26-34) PG MCHC 34.3 (30-36) % RDW 13.6 (11.6-14.8) % Plt Count 294 (150-400) X10^3/uL Neut % (Auto) 72.1 (50-75) % Lymph % (Auto) 20.4 L (25-40) % [place] % (Auto) 6.4 (3-14) % Eos % (Auto) 0.6 L (2-4) % Baso % (Auto) 0.5 (0-2) % Neut # (Auto) 9200 H (0214-8426) /uL Lymph # (Auto) 2600 (0111-4985) /uL [place] # (Auto) 800 (0-900) /uL Eos # (Auto) 100 (0-450) /uL Baso # (Auto) 100 (0-100) /uL Sodium 138 (137-145) mmol/L Potassium 3.8 (3.4-5.1) mmol/L Chloride 101 (98-107) mmol/L Carbon Dioxide 28 (22-32) mmol/L BUN 7 (7-17) mg/dL Creatinine 0.50 L (0.52-1.04) mg/dL Estimated GFR > 60.0 (>60) mL/min BUN/Creatinine Ratio 14.0 (6-22) Glucose 94 (70-100) mg/dL Calcium 9.2 (8.4-10.2) mg/dL Total Bilirubin 0.5 (0.2-1.3) mg/dL AST 29 (14-36) IU/L ALT 25 (9-52) IU/L Alkaline Phosphatase 75 (38-126) U/L Total Protein 7.6 (6.3-8.2) g/dL Albumin 4.2 (3.5-5.0) g/dL Globulin 3.4 (1.7-4.1) g/dL Albumin/Globulin Ratio 1.2 (1.0-2.8) Lipase 75 (23-300) U/L Point of care testing: Point of Care Testing Test Results Negative Urine Dip Bedside Urine Glucose Negative Bedside Urine Bilirubin - Negative Bedside Urine Ketone - Negative Urine Specific [place] 1.010 Bedside Urine Occult Blood - Negative Bedside Urine pH 6.0 Bedside Urine Protein - Negative Bedside Urine Urobilinogen - Negative Bedside Urine Nitrite - Negative Bedside Urine Leukocytes - Negative Esterase Imaging Data US - abdomen: Radiologist's impression: Preliminary report: Fatty infiltration of the liver otherwise unremarkable MDM Narrative Medical decision making narrative: Patient's blood work is fairly unremarkable. Her exam is relatively benign she has pain all over her abdomen partially more in the right upper quadrant. Urine is negative. She is lying on the bed on her phone does not want or need anything for pain. At this time I recommend outpatient follow-up. Discharge Plan Departure Patient Disposition: Home Clinical Impression: Abdominal pain Qualifiers: Abdominal location: generalized Qualified Code(s): R10.84 - Generalized abdominal pain Discharge Date/Time: 12/26/18 00:04 Instructions: DI for Abdominal Pain-Adult Activity Restrictions/Additional Instructions: *You have been diagnosed with abdominal pain *What to do: At this time no cause severe abdominal pain is found. Possible virus. Recommend increasing fluids *Continue to take medications as directed Tylenol 650 mg every 4-6 hours if needed for pain Ibuprofen 600 mg every 6-8 hours if needed for pain *Follow up with your primary care provider in 2-3 days *Return to ER if you should have increasing pain persistent vomiting persistent diarrhea or any new, worsening or concerning symptoms Prescriptions: No Action ketorolac 10 mg tablet 10 mg PO Q6H PRN (Reason: pain) Qty: 14 RF: 0 ondansetron 4 mg tablet,disintegrating 4 mg PO TID-QID PRN (Reason: nausea and vomiting) Qty: 10 RF: 0 Referrals: [facility] [Outside]
[2018-12-25 21:28] LABS: Add Manual Diff / Slide Review NO; Basophils Absolute Auto 100 /uL (0-100); Basophils Percent Auto 0.5 % (0-2); Eosinophils Absolute Auto 100 /uL (0-450); Eosinophils Percent Auto 0.6 % (2-4); Hematocrit 38.6 % (36-46); Hemoglobin 13.2 g/dL (12.0-16.0); Lymphocytes Absolute Auto 2600 /uL (1100-4500); Lymphocytes Percent Auto 20.4 % (25-40); Mean Corpuscular HGB Conc 34.3 % (30-36); Mean Corpuscular Hemoglobin 31.1 PG (26-34); Mean Corpuscular Volume 90.6 fL (80-100); Monocytes Absolute Auto 800 /uL (0-900); Monocytes Percent Auto 6.4 % (3-14); Neutrophils Absolute Auto 9200 /uL (1500-7000); Neutrophils Percent Auto 72.1 % (50-75); Platelet Count 294 X10^3/uL (150-400); Red Blood Cell Count 4.26 X10^6/uL (4.0-5.2); Red Cell Distribution Width 13.6 % (11.6-14.8); White Blood Cell Count 12.8 X10^3/uL (4.5-11.0)
[2018-12-25] MEDS: KETOROLAC 60 MG/2 ML VIAL 30 MG IV (21:29)
[2018-12-25 21:38] LABS: Alanine Aminotransferase 25 IU/L (9-52); Albumin 4.2 g/dL (3.5-5.0); Albumin Globulin Ratio 1.2 (1.0-2.8); Alkaline Phosphatase 75 U/L (38-126); Aspartate Aminotransferase 29 IU/L (14-36); Bilirubin Total 0.5 mg/dL (0.2-1.3); Blood Urea Nitrogen 7 mg/dL (7-17); Calcium 9.2 mg/dL (8.4-10.2); Carbon Dioxide 28 mmol/L (22-32); Chloride 101 mmol/L (98-107); Estimated Glomerular Filt Rate > 60.0 mL/min (>60); Globulin 3.4 g/dL (1.7-4.1); Glucose 94 mg/dL (70-100); HEMOLYSIS < 15 (0-50); Lipase 75 U/L (23-300); Potassium 3.8 mmol/L (3.4-5.1); Sodium 138 mmol/L (137-145); Total Protein 7.6 g/dL (6.3-8.2)
[2018-12-25 22:00] VITALS: BP 116/49; PULSE 86; RESP 16; O2SAT 100
[2018-12-25 23:00] VITALS: BP 124/74; PULSE 87; RESP 17; O2SAT 99
[2018-12-26 00:12] VITALS: BP 101/61; PULSE 78; RESP 14; O2SAT 100
== END 2018-12-26 00:04 | disposition home or self-care (01) ==
PROVIDERS: Emergency Provider Emergency Medicine
DX: R10.84 Generalized abdominal pain (principal)
CPT/HCPCS: 76705; 80053; 81003; 81025; 83690; 85025; 96374; 99283; 99284; J1885

== ENCOUNTER 2019-01-19 22:58 | Emergency (ER) | payer OTHER, SELFPAY ==
[2019-01-19 23:09] VITALS: BP 113/79; PULSE 94; RESP 16; TEMP 37.1; O2SAT 99
--- NOTE | 2019-01-19 23:54 | ED_ITS ---
HPI - Wound/Laceration General Chief Complaint: Wound/Laceration Stated Complaint: laceration to left hand Time Seen by Provider: 01/19/19 23:52 Source: patient Mode of arrival: Ambulatory Limitations: no limitations History of Present Illness HPI narrative: This is a 18-year-old female comes to the emergency department with laceration to the left palm. Patient states that she cut herself with a pocket knife. She states that she was upset because she had good news to share with her boyfriend and felt like he blew her off. She states that she just found a new job. Patient states she was frustrated took the pocket knife in order to deal with her emotional pain, she states that her intent was not to kill herself or to seriously harm herself. She states that she has some pain but she is able to move her hand without issue. She denies numbness or tingling. She does not know for tetanus is up-to-date she thinks she was about 11 or so and in 9th grade when she had her last tetanus. She denies any suic idal ideation or homicidal ideation, she denies any intent to harm herself or cause self injury at this time. She is accompanied by her roommate who was at work so she could not talk to her but her roommate states that she will hide the knives and that they feel comfortable with her returning home. Patient does have a counselor, she is going to call to set up a follow-up appointment she sees him regularly but has to call the actually establishing appointment. She is taking medications regularly and has not had any new changes. She does not feel that she needs to be hospitalized or have further inpatient care. Related Data Previous Rx's Medication Instructions Recorded ketorolac 10 mg PO Q6H PRN #14 tab 11/09/18 ondansetron 4 mg PO TID-QID PRN #10 tab 11/09/18 Allergies Allergy/AdvReac Type Severity Reaction Status Date / Time No Known Drug Allergies Allergy Verified 11/08/18 18:57 Review of Systems Review of Systems ROS Unobtainable: All systems reviewed & are unremarkable except as noted in HPI and below Psychiatric Psychiatric: Denies hallucinations, Denies homicidal ideation and Denies suicidal ideation Patient History Medical History No significant medical problems (Acute) Social History Smoking Status: Former smoker alcohol intake frequency: 0-2 drinks per day Substance Use Type: does not use Exam Narrative Exam Narrative: GENERAL: Alert and oriented x three, obese female in mild distress. She is joking and laughing with her roommate in the room. HEENT: Head normocephalic, atraumatic, EOMI, pupils reactive, face symmetric, moist mucous membranes NECK: Supple, full range of motion EXTREMITIES: Normal range of motion, no clubbing or edema. Neurovascularly intact. patient has 5/5 muscle strength with full flexion extension of her hand. She has a superficial laceration extending across the lower half of the palm patient laceration does not gape. There is no subcutaneous ext tissue exposed. Patient has normal sensation throughout. Cap refill less 5 seconds in all 5 fingers with 2+ radial pulse and no bony tenderness. Patient states it is only mildly tender to palpation. NEUROLOGICAL: Cranial nerves II through XII grossly intact. Moving all extremities SKIN: Warm, dry, no petechiae, no rashes or lesions other than noted above. Initial Vital Signs Initial Vital Signs: Vital Signs Temperature 98.7 F 01/19/19 23:09 Pulse Rate 94 H 01/19/19 23:09 Respiratory Rate 16 01/19/19 23:09 Blood Pressure 113/79 01/19/19 23:09 Pulse Oximetry 99 01/19/19 23:09 Course Orders Ordered: Discontinued Medications Diphtheria/Tetanus/Acell Pertussis (Adacel) 0.5 ml IM .ONCE ONE Stop: 01/20/19 00:01 Last Admin: 01/20/19 00:05 Dose: 0.5 ml Documented by: ALBIN Vital Signs Vital signs: Vital Signs - 8 hr 01/19/19 23:09 Temperature 98.7 F Pulse Rate 94 H Respiratory Rate 16 Blood Pressure 113/79 Pulse Oximetry 99 MDM - Wound/Laceration MDM Narrative Medical decision making narrative: Patient has a history of self-injury, she states it was not her intent to seriously harm herself or kill herself. She is accompanied by her roommate who had her come today. Her roommate and her both feel comfortable with her returning home. She feels more comfortable at this time. We also discussed plan for her to prevent from harming herself in the future and options that she can pursue if she is having those thoughts. She states she is not having them at this time. Patient also has a plan in place already to contact her counselor, continue her medications and given options for the video a [facility] team if she is interested. Bandage was placed on patient's hand with return precautions for any signs of infection. Discharge Plan Departure Patient Disposition: Home Clinical Impression: Injury, self-inflicted Laceration of left palm Qualifiers: Encounter type: initial encounter Qualified Code(s): S61.412A - Laceration without foreign body of left hand, initial encounter Discharge Date/Time: 01/20/19 00:12 Instructions: DI for Minor Laceration Activity Restrictions/Additional Instructions: Follow-up with your counselor, call in the morning for an appointment. Continue home medications as prescribed. I would recommend contacting a friend, trusted adviser, counselor or the hotline below if you are having increased stress or having thoughts of cutting yourself. You may return to the emergency department at any time if you are feeling unsafe, if you are having thoughts of cutting herself, if you are having thoughts of harming or killing yourself, harming others or other new or concerning symptoms. If you're feeling suicidal or having suicidal thoughts, contact the suicide hotline (this number is also the resource number for [facility] team and they can do next day appointments, counseling and additional help). . Prescriptions: No Action ketorolac 10 mg tablet 10 mg PO Q6H PRN (Reason: pain) Qty: 14 RF: 0 ondansetron 4 mg tablet,disintegrating 4 mg PO TID-QID PRN (Reason: nausea and vomiting) Qty: 10 RF: 0
[2019-01-20] MEDS: TET,DIPH,PERTUSS(ACELL),VAC/PF 0.5 ML SYRINGE IM (00:05)
== END 2019-01-20 00:12 | disposition home or self-care (01) ==
PROVIDERS: Emergency Provider Emergency Medicine
DX: S61.412A Laceration without foreign body of left hand, initial encounter (principal); W29.1XXA Contact with electric knife, initial encounter; Z23 Encounter for immunization
CPT/HCPCS: 90471; 99282; 99283; 90715

== ENCOUNTER 2019-04-04 02:43 | Emergency (ER) | payer SELFPAY ==
[2019-04-04 03:12] VITALS: BP 117/68; PULSE 86; RESP 17; TEMP 36.9; O2SAT 100; BMI 43.2
--- NOTE | 2019-04-04 03:15 | DI.RAD.S_ITS ---
PROCEDURE: XR CHEST 1V INDICATIONS: fall with pain to chest TECHNIQUE: One view of the chest was acquired. COMPARISON: [facility], CR, XR CHEST 2V, 11/08/2018, 20:26. FINDINGS: Surgical changes and devices: None. Lungs and pleura: Lungs are clear considering reduced inspiration and body habitus. No pleural effusions or pneumothorax. Mediastinum: Mediastinal contours appear normal. Heart size is normal. Bones and chest wall: No suspicious bony lesions. Overlying soft tissues appear unremarkable. IMPRESSION: Mild crowding of the bronchovascular markings, no trauma. Dictated by: Cj Bianchi M.D. on 04/04/2019 at 8:40 Approved by: Cj Bianchi M.D. on 04/04/2019 at 8:41
[2019-04-04 04:05] VITALS: BP 108/76; PULSE 89; RESP 16; TEMP 36.1; O2SAT 97
--- NOTE | 2019-04-04 04:06 | ED_ITS ---
HPI - Fall General Chief Complaint: Fall Stated Complaint: chest pain after fall Time Seen by Provider: 04/04/19 04:04 Source: patient Mode of arrival: Family Vehicle Limitations: no limitations History of Present Illness HPI Narrative: This is a 19-year-old female who comes to the emergency department with complaint of chest pain after a fall. Patient states she fell 2 or 3 days ago. She was carrying a box filled with video game cartridges and fell onto the box with her weight onto the floor. She has bruising over the right breast. She has discomfort in the anterior chest that is increased with movement and deep inspiration and cough. Patient has not had any increasing bruising. She has not had any fevers. She has not had any hemoptysis or productive cough. Pain does not radiate elsewhere. She has not had any lightheadedness or passing out. She has occasionally felt slightly nauseated but no vomiting. No abdominal pain. She denies other injuries other than some bruising on her right elbow and right knee. Patient does not take any medications regularly, she does not take aspirin. She has not taken anything at home for pain. She did attempt to move a piano today which exacerbated her symptoms. She states she is otherwise healthy. Denies surgeries. Denies allergies. Has tobacco, occasional alcohol and no illicit. Related Data Previous Rx's Medication Instructions Recorded ketorolac 10 mg PO Q6H PRN #14 tab 11/09/18 ondansetron 4 mg PO TID-QID PRN #10 tab 11/09/18 Allergies Allergy/AdvReac Type Severity Reaction Status Date / Time No Known Drug Allergies Allergy Verified 11/08/18 18:57 Review of Systems Review of Systems ROS Unobtainable: All systems reviewed & are unremarkable except as noted in HPI and below Patient History Social History Smoking Status: Former smoker Smoking Status: Former smoker alcohol intake frequency: 0-2 drinks per day Substance Use Type: does not use Exam Narrative Exam Narrative: GENERAL: Alert and oriented x three, obese female in mild distress. Patient is sitting cross-legged on the bed. HEENT: Head normocephalic, atraumatic, EOMI, pupils reactive, face symmetric, moist mucous membranes NECK: Supple, full range of motion CARDIOVASCULAR: Regular rate and rhythm without murmurs, rubs or gallops. Patient has or discomfort with palpation of the anterior mediastinum. She does have some ecchymosis the right breast in a diagonal line with no hematoma palpated. Patient does not have any other bruising of the anterior chest torso appreciated. RESPIRATORY: Breath sounds equal bilaterally, no wheezes rales or rhonchi. ABDOMEN: Soft, nontender. Normoactive bowel sounds all 4 quadrants. No guarding or rebound, rigidity, no mass : No CVA tenderness BACK: No cervical, thoracic or lumbar vertebral point tenderness. Patient has normal range of motion. Patient's gait is norm. Muscle strength is 5/5 in upper extremities. EXTREMITIES: Normal range of motion, no clubbing or edema. Neurovascularly intact NEUROLOGICAL: Cranial nerves II through XII grossly intact. Moving all extremities SKIN: Warm, dry, no petechiae, no rashes or lesions, patient does have some ecchymosis on the right elbow but with full range of motion. Patient defers sharing ecchymosis on her lower extremity. Initial Vital Signs Initial Vital Signs: Vital Signs Temperature 98.5 F 04/04/19 03:12 Pulse Rate 86 04/04/19 03:12 Respiratory Rate 17 04/04/19 03:12 Blood Pressure 117/68 04/04/19 03:12 Pulse Oximetry 100 04/04/19 03:12 Course Orders Ordered: ED Orders 04/04/19 03:15 XR chest 1V Stat Vital Signs Vital signs: Vital Signs - 8 hr 04/04/19 03:12 04/04/19 04:05 Temperature 98.5 F 97.0 F L Pulse Rate 86 89 Respiratory Rate 17 16 Blood Pressure 117/68 Blood Pressure [Right Arm] 108/76 Pulse Oximetry 100 97 [facility] - Fall Imaging Data Chest x-ray: Attestation: I personally reviewed and interpreted this imaging study as follows: My Impression: No acute process, no pneumothorax, no hemothorax, no infiltrate. Normal mediastinum. No displaced rib fractures noted. [facility] Narrative Medical decision making narrative: Patient comes in of ecchymosis of the right anterior chest wall particularly over the right breast. She is moderately tender to palpation. She has normal vital signs with no acute changes on chest x-ray and no red flag symptoms at this time. She did try to move a piano this evening which seemed to exacerbate her symptoms. She has not taken any Tylenol or ibuprofen for pain and his continued to be active. Discharge Plan Departure Patient Disposition: Home Clinical Impression: Traumatic ecchymosis of chest, Chest pain Discharge Date/Time: 04/04/19 04:51 Instructions: DI for Chest Pain Activity Restrictions/Additional Instructions: Follow-up with your primary in the next 2-3 weeks if her symptoms are not improving. You may take Tylenol and/or ibuprofen as needed for pain. You may use ice to the affected area 4 times daily. You may advance your activity as tolerated. Return to the ER for passing out, difficulty with breathing, coughing up blood, persistent vomiting, rapidly spreading bruising or other skin changes, persistent vomiting, new shortness of breath increasing chest pain or other new or concerning symptoms. Prescriptions: No Action ketorolac 10 mg tablet 10 mg PO Q6H PRN (Reason: pain) Qty: 14 RF: 0 ondansetron 4 mg tablet,disintegrating 4 mg PO TID-QID PRN (Reason: nausea and vomiting) Qty: 10 RF: 0
== END 2019-04-04 04:51 | disposition home or self-care (01) ==
PROVIDERS: Emergency Provider Emergency Medicine
DX: R07.89 Other chest pain (principal); S20.211A Contusion of right front wall of thorax, initial encounter; W18.39XA Other fall on same level, initial encounter
CPT/HCPCS: 71045; 99281; 99283

== ENCOUNTER 2019-06-28 19:10 | Emergency (ER) | payer SELFPAY ==
[2019-06-28 19:23] VITALS: BP 132/63; PULSE 108; RESP 18; O2SAT 98; BMI 45.8
[2019-06-28 19:47] LABS: Bacteria Urine Occasional (0-1); Culture Indicated Urine Specimen Cultured; RBC Urine 0-1/HPF (0-5/HPF); Squamous Epithelial Cell Urine 0-1 /HPF (0-5/HPF); WBC Urine 5-10/HPF (0-5/HPF)
[2019-06-28 19:55] LABS: Add Manual Diff / Slide Review NO; Basophils Absolute Auto 100 /uL (0-100); Basophils Percent Auto 0.4 % (0-2); Eosinophils Absolute Auto 300 /uL (0-450); Eosinophils Percent Auto 2.1 % (2-4); Hematocrit 37.2 % (36-46); Hemoglobin 13.1 g/dL (12.0-16.0); Lymphocytes Absolute Auto 2800 /uL (1100-4500); Lymphocytes Percent Auto 21.9 % (25-40); Mean Corpuscular HGB Conc 35.2 % (30-36); Mean Corpuscular Hemoglobin 31.5 PG (26-34); Mean Corpuscular Volume 89.6 fL (80-100); Monocytes Absolute Auto 1100 /uL (0-900); Monocytes Percent Auto 8.7 % (3-14); Neutrophils Absolute Auto 8600 /uL (1500-7000); Neutrophils Percent Auto 66.9 % (50-75); Platelet Count 276 X10^3/uL (150-400); Red Blood Cell Count 4.15 X10^6/uL (4.0-5.2); Red Cell Distribution Width 12.6 % (11.6-14.8); White Blood Cell Count 12.8 X10^3/uL (4.5-11.0)
--- NOTE | 2019-06-28 20:01 | ED_ITS ---
HPI - Abdominal Pain <ANNA Elias - Last Filed: 06/28/19 21:27> General Chief Complaint: Abdominal Pain Stated Complaint: Right Sided Abd Pain Time Seen by Provider: 06/28/19 19:17 Source: patient Mode of arrival: Ambulatory History of Present Illness HPI narrative: 19yo female presents emergency department complaining of intermittent rate side pain. He states it started on the left side yesterday while at work, she had 2 episodes of sharp stabbing intermittent pain. Today was standing at work and twisting she noticed the pain occurred suddenly on the right side. The pain was intermittent until the last few hours when it is constant. She describes as a sharp stabbing pain that is worse with twisting. She denies any nausea, vomiting, diarrhea, fevers, chills, dysuria, vaginal discharge, dizziness, flank pain, concerns for STDs, concern for , or any other concerns. She has been seen a few times in the past year for abdominal pain, patient was diagnosed with hemorrhagic ovarian cyst on 08/2018. Related Data Previous Rx's Medication Instructions Recorded ketorolac 10 mg PO Q6H PRN #14 tab 11/09/18 ondansetron 4 mg PO TID-QID PRN #10 tab 11/09/18 cyclobenzaprine 10 mg PO BEDTIME PRN #14 tab 06/28/19 Allergies Allergy/AdvReac Type Severity Reaction Status Date / Time No Known Drug Allergies Allergy Verified 11/08/18 18:57 Review of Systems <ANNA Elias - Last Filed: 06/28/19 21:27> Review of Systems Narrative: REVIEW OF SYSTEMS: GENERAL: Denies fever, chills, malaise, or wt. loss. HENT: No head trauma, sore throat, or dysphagia. EYES: No loss of vision, double vision, eye pain, or irritation. CARDIOVASCULAR: No chest pain, palpitations, or orthopnea. RESPIRATORY: No shortness of breath or cough. GASTROINTESTINAL: Complains of right-sided abdominal pain, see HPI GENITOURINARY: No flank pain, urinary incontinence, hesitancy, frequency, or dysuria. No vaginal discharge or dyspareunia. Denies concerns for STIs MUSCULOSKELETAL: No pain, weakness, or trauma. INTEGUMENTARY: No rash, lesions, or pruritus. NEURO: No numbness, tingling, memory loss, confusion, or headaches. PSYCH: No behavior or mood changes. Patient History <ANNA Elias - Last Filed: 06/28/19 21:27> Medical History No significant medical problems (Acute) Social History Smoking Status: Former smoker Smoking Status: Former smoker alcohol intake frequency: 0-2 drinks per day Substance Use Type: does not use Exam <ANNA Elias - Last Filed: 06/28/19 21:27> Initial Vital Signs Initial Vital Signs: Vital Signs Pulse Rate 108 H 06/28/19 19:23 Respiratory Rate 18 06/28/19 19:23 Blood Pressure 132/63 06/28/19 19:23 Pulse Oximetry 98 06/28/19 19:23 PHYSICAL EXAMINATION: GENERAL: Well groomed, alert, and cooperative. Answers questions promptly and appropriately. Vital signs noted. HENT: Normocephalic, atraumatic. Hearing intact. Oral mucosa is pink and moist. EYES: Conjunctiva pink, sclera white, no periorbital swelling. CARDIOVASCULAR: S1 and S2 sounds normal. Regular rate and rhythm, no murmurs, c licks, or bruits. No pedal edema. RESPIRATORY: Normal respiratory rate, trachea midline, airway patent. No stridor, nasal flaring or accessory muscle use. Lungs are clear in all robbins without wheeze, rhonchi, or crackles. GASTROINTESTINAL: Bowel sounds normoactive. Abdomen is soft, slight tenderness on the right side of abdomen along the mid axillary line, right lower or right upper quadrant tenderness. No rebound tenderness. Negative Pagan sign. No organomegaly, no palpable masses. GENITALURINARY: No flank tenderness. MUSCULOSKELETAL: Normal gait and coordination. Equal tone and mass bilaterally. EXTREMITIES: CMS intact, no pedal edema. SKIN: Warm, dry, soft, appropriate color for ethnicity. No lesions, rashes, or wounds to visualized areas. NEURO: Alert and Oriented X 3. Good coordination. No ataxia, or sensory deficits, or cognitive issues. PSYCH: Appropriate affect and mood. <Alejandro Chambers DO - Last Filed: 06/28/19 21:54> Initial Vital Signs Initial Vital Signs: Vital Signs Pulse Rate 108 H 06/28/19 19:23 Respiratory Rate 18 06/28/19 19:23 Blood Pressure 132/63 06/28/19 19:23 Pulse Oximetry 98 06/28/19 19:23 Course <ANNA Elias - Last Filed: 06/28/19 21:27> Course Course Narrative: Patient states the pain was significantly improving without any intervention the emergency department. After discussion with patient that it may be musculoskeletal in nature, she stated ?Oh that makes sense because it hurts when I twist more. Orders Ordered: ED Orders 06/28/19 19:15 Urine Culture Stat Urine Microscopic Stat 06/28/19 19:50 Complete Blood Count AUTO DIFF Stat Comprehensive Metabolic Panel Stat Lipase Stat Discontinued Medications Sodium Chloride (Normal Saline 0.9%) 1,000 mls @ 1,000 mls/hr IV BOLUS ONE Stop: 06/28/19 20:36 Last Admin: 06/28/19 21:18 Dose: Not Given Documented by: LORETTA Consultations Consultation #1: Patient staffed with Dr. Chambers, discussed tests, results, and plan of care with discharge. Vital Signs Vital signs: Vital Signs - 8 hr 06/28/19 19:23 06/28/19 20:07 06/28/19 20:42 Pulse Rate 108 H 97 H 93 H Respiratory Rate 18 Blood Pressure 132/63 Blood Pressure [Right Arm] 132/63 Pulse Oximetry 98 99 <Alejandro Chambers DO - Last Filed: 06/28/19 21:54> Orders Ordered: ED Orders 06/28/19 19:15 Urine Culture Stat Urine Microscopic Stat 06/28/19 19:50 Complete Blood Count AUTO DIFF Stat Comprehensive Metabolic Panel Stat Lipase Stat Discontinued Medications Sodium Chloride (Normal Saline 0.9%) 1,000 mls @ 1,000 mls/hr IV BOLUS ONE Stop: 06/28/19 20:36 Last Admin: 06/28/19 21:18 Dose: Not Given Documented by: LORETTA Vital Signs Vital signs: Vital Signs - 8 hr 06/28/19 19:23 06/28/19 20:07 06/28/19 20:42 Pulse Rate 108 H 97 H 93 H Respiratory Rate 18 Blood Pressure 132/63 Blood Pressure [Right Arm] 132/63 Pulse Oximetry 98 99 MDM - Abdominal Pain <ANNA Elias - Last Filed: 06/28/19 21:27> Medical Records Attestation: I reviewed the patient's medical records. Lab Data Attestation: I reviewed the patient's lab results. Result diagrams: 06/28/19 19:50 06/28/19 19:50 Labs: Lab Results 06/28/19 06/28/19 06/28/19 Range/Units 19:15 19:50 19:50 WBC 12.8 H (4.5-11.0) X10^3/uL RBC 4.15 (4.0-5.2) X10^6/uL Hgb 13.1 (12.0-16.0) g/dL Hct 37.2 (36-46) % MCV 89.6 (80-100) fL MCH 31.5 (26-34) PG MCHC 35.2 (30-36) % RDW 12.6 (11.6-14.8) % Plt Count 276 (150-400) X10^3/uL Neut % (Auto) 66.9 (50-75) % Lymph % (Auto) 21.9 L (25-40) % [place] % (Auto) 8.7 (3-14) % Eos % (Auto) 2.1 (2-4) % Baso % (Auto) 0.4 (0-2) % Neut # (Auto) 8600 H (9550-8958) /uL Lymph # (Auto) 2800 (0933-7802) /uL [place] # (Auto) 1100 H (0-900) /uL Eos # (Auto) 300 (0-450) /uL Baso # (Auto) 100 (0-100) /uL Sodium 136 L (137-145) mmol/L Potassium 4.2 (3.4-5.1) mmol/L Chloride 104 (98-107) mmol/L Carbon Dioxide 26 (22-32) mmol/L BUN 13 (7-17) mg/dL Creatinine 0.55 (0.52-1.04) mg/dL Estimated GFR > 60.0 (>60) mL/min BUN/Creatinine Ratio 23.6 H (6-22) Glucose 100 (70-100) mg/dL Calcium 9.1 (8.4-10.2) mg/dL Total Bilirubin 0.3 (0.2-1.3) mg/dL AST 26 (14-36) IU/L ALT 16 (<35) IU/L Alkaline Phosphatase 58 (38-126) U/L Total Protein 7.7 (6.3-8.2) g/dL Albumin 4.1 (3.5-5.0) g/dL Globulin 3.6 (1.7-4.1) g/dL Albumin/Globulin Ratio 1.1 (1.0-2.8) Lipase 107 (23-300) U/L Urine RBC 0-1/hpf (0-5/HPF) Urine WBC 5-10/hpf H (0-5/HPF) Ur Squamous Epith Cells 0-1 /hpf (0-5/HPF) Urine Bacteria Occasional (0-1) (None) Ur Culture Indicated? Specimen cultured Point of care testing: Point of Care Testing Test Results Negative Urine Dip Bedside Urine Glucose Negative Bedside Urine Bilirubin - Negative Bedside Urine Ketone - Negative Urine Specific Era 1.015 Bedside Urine Occult Blood - Negative Bedside Urine pH 6.5 Bedside Urine Protein - Negative Bedside Urine Urobilinogen - Negative Bedside Urine Nitrite - Negative Bedside Urine Leukocytes +/- 15 Esterase MDM Narrative Medical decision making narrative: 19-year-old female presents emergency department with right side pain with started today. Patient has been seen for abdominal pain multiple times in the past. However, history and examination today was most consistent with musculoskeletal strain as pain occurred while at work, reported sharp pain, pain worse with twisting. Less concern for appendicitis due to no right lower quadrant pain, no rebound tenderness, and patient is afebrile, patient's tachycardia resolved with small amount of p.o. fluids. White blood cell count was slightly elevated to 12.8, this was consistent with her tests in the past, patient has been as high as 14 in the past without significant cause infection, therefore less likely infection. Patient did have white blood cells in her urine but she denied any dysuria or flank pain, after discussion with patient we agreed to wait for cultu re before treating possible urinary tract infection as the findings were not consistent with symptoms. Less likely ovarian cyst due to location of pain appearing more on her side in in her lower pelvic or abdominal region. Discussed with patient taking ibuprofen and possible muscle relaxers, using gentle stretches and following up with her primary care provider. Patient was given very strict ED return precautions for new or worsening symptoms. She agreed to plan of care verbalized understanding. <Alejandro Chambers, DO - Last Filed: 06/28/19 21:54> Lab Data Labs: Lab Results 06/28/19 06/28/19 06/28/19 Range/Units 19:15 19:50 19:50 WBC 12.8 H (4.5-11.0) X10^3/uL RBC 4.15 (4.0-5.2) X10^6/uL Hgb 13.1 (12.0-16.0) g/dL Hct 37.2 (36-46) % MCV 89.6 (80-100) fL MCH 31.5 (26-34) PG MCHC 35.2 (30-36) % RDW 12.6 (11.6-14.8) % Plt Count 276 (150-400) X10^3/uL Neut % (Auto) 66.9 (50-75) % Lymph % (Auto) 21.9 L (25-40) % [place] % (Auto) 8.7 (3-14) % Eos % (Auto) 2.1 (2-4) % Baso % (Auto) 0.4 (0-2) % Neut # (Auto) 8600 H (5922-1440) /uL Lymph # (Auto) 2800 (8080-5440) /uL [place] # (Auto) 1100 H (0-900) /uL Eos # (Auto) 300 (0-450) /uL Baso # (Auto) 100 (0-100) /uL Sodium 136 L (137-145) mmol/L Potassium 4.2 (3.4-5.1) mmol/L Chloride 104 (98-107) mmol/L Carbon Dioxide 26 (22-32) mmol/L BUN 13 (7-17) mg/dL Creatinine 0.55 (0.52-1.04) mg/dL Estimated GFR > 60.0 (>60) mL/min BUN/Creatinine Ratio 23.6 H (6-22) Glucose 100 (70-100) mg/dL Calcium 9.1 (8.4-10.2) mg/dL Total Bilirubin 0.3 (0.2-1.3) mg/dL AST 26 (14-36) IU/L ALT 16 (<35) IU/L Alkaline Phosphatase 58 (38-126) U/L Total Protein 7.7 (6.3-8.2) g/dL Albumin 4.1 (3.5-5.0) g/dL Globulin 3.6 (1.7-4.1) g/dL Albumin/Globulin Ratio 1.1 (1.0-2.8) Lipase 107 (23-300) U/L Urine RBC 0-1/hpf (0-5/HPF) Urine WBC 5-10/hpf H (0-5/HPF) Ur Squamous Epith Cells 0-1 /hpf (0-5/HPF) Urine Bacteria Occasional (0-1) (None) Ur Culture Indicated? Specimen cultured Point of care testing: Point of Care Testing Test Results Negative Urine Dip Bedside Urine Glucose Negative Bedside Urine Bilirubin - Negative Bedside Urine Ketone - Negative Urine Specific Era 1.015 Bedside Urine Occult Blood - Negative Bedside Urine pH 6.5 Bedside Urine Protein - Negative Bedside Urine Urobilinogen - Negative Bedside Urine Nitrite - Negative Bedside Urine Leukocytes +/- 15 Esterase Discharge Plan Departure Patient Disposition: Home Clinical Impression: Musculoskeletal strain Discharge Date/Time: 06/28/19 21:23 Instructions: Abdominal Muscle Strain Activity Restrictions/Additional Instructions: Thank you for entrusting me with your care today. As discussed, your laboratory work is non-remarkable. I suspect your pain is most likely caused by a muscle strain due to the location of your pain, normal labs, and the pain is worse when you turn or move. There was a small amount of white blood cells in your urine, your urine was sent for culture, results will finish in 1-2 days, we will call you if they are positive and start you on antibiotics. However, please return to the emergency department if you develops new or worsening symptoms especially fevers, worsening pain, uncontrollable vomiting, or any other concerns. You have been prescribed a muscle relaxer, do not drive with this medication as it can make you drowsy. You may take ibuprofen in addition to this. Prescriptions: New cyclobenzaprine 10 mg tablet 10 mg PO BEDTIME PRN (Reason: muscle spasm) Qty: 14 RF: 0 No Action ketorolac 10 mg tablet 10 mg PO Q6H PRN (Reason: pain) Qty: 14 RF: 0 ondansetron 4 mg tablet,disintegrating 4 mg PO TID-QID PRN (Reason: nausea and vomiting) Qty: 10 RF: 0 <Alejandro Chambers, DO - Last Filed: 06/28/19 21:54> Cosign ED Attending Cosignature Attestation: Dr Chambers Co-Sign Statement: I was available for consultation during this patient's emergency department visit. This chart is signed by myself for administrative purposes only. I did not have direct contact with this patient during this visit. They were seen independently by the APC.
[2019-06-28 20:07] VITALS: BP 132/63; PULSE 97
[2019-06-28 20:07] LABS: Alanine Aminotransferase 16 IU/L (<35); Albumin 4.1 g/dL (3.5-5.0); Albumin Globulin Ratio 1.1 (1.0-2.8); Alkaline Phosphatase 58 U/L (38-126); Aspartate Aminotransferase 26 IU/L (14-36); BUN Creatinine Ratio 23.6 (6-22); Bilirubin Total 0.3 mg/dL (0.2-1.3); Blood Urea Nitrogen 13 mg/dL (7-17); Calcium 9.1 mg/dL (8.4-10.2); Carbon Dioxide 26 mmol/L (22-32); Chloride 104 mmol/L (98-107); Estimated Glomerular Filt Rate > 60.0 mL/min (>60); Globulin 3.6 g/dL (1.7-4.1); Glucose 100 mg/dL (70-100); Lipase 107 U/L (23-300); Potassium 4.2 mmol/L (3.4-5.1); Sodium 136 mmol/L (137-145); Total Protein 7.7 g/dL (6.3-8.2)
[2019-06-28 20:09] LABS: HEMOLYSIS 59 (0-50)
--- NOTE | 2019-06-28 20:17 | PC.NURSE ---
Patient states i was able to distract myself on my phone, so it wasn't that bad I am just worried it will come back again
[2019-06-28 20:42] VITALS: PULSE 93; O2SAT 99
== END 2019-06-28 21:23 | disposition home or self-care (01) ==
PROVIDERS: Emergency Provider Nurse Practitioner
DX: S39.011A Strain of muscle, fascia and tendon of abdomen, initial encounter (principal)
CPT/HCPCS: 36415; 80053; 81003; 81015; 81025; 83690; 85025; 87086; 99282; 99283

== ENCOUNTER 2019-07-03 23:15 | Emergency (ER) | payer SELFPAY ==
[2019-07-03 23:22] VITALS: BP 102/62; PULSE 98; RESP 18; TEMP 36.8; O2SAT 96
--- NOTE | 2019-07-03 23:23 | ED.ABDPAIN ---
HPI - Abdominal Pain General Chief Complaint: Abdominal Pain Stated Complaint: right lower abdominal pain x1 wk Time Seen by Provider: 07/03/19 23:18 Source: patient Mode of arrival: Ambulatory Limitations: no limitations History of Present Illness HPI narrative: 19-year-old female former smoker without significant medical problems presents for the 2nd time in a week for an episode of right lower quadrant pain in the absence of injury. She denies any provocation, palliation or radiation. She denies any fever, chills nor nausea or vomiting. She denies any dysuria, frequency or urgency. She does state that she has had some abnormal spotting on occasion. Her last period was at the beginning of May and is abnormal for her to miss a cycle. She was tested for a few days ago. When she was evaluated a few days ago she was thought to have musculoskeletal pain and upon going home her symptoms had resolved only to return. MD complaint: abdominal pain Onset (ago): day(s) Pain Consistency: intermittent Location: RLQ Severity: moderate Quality: cramping Radiation: none Relieving factors: nothing Exacerbating factors: nothing Associated symptoms: other Related Data Previous Rx's Medication Instructions Recorded ketorolac 10 mg PO Q6H PRN #14 tab 11/09/18 ondansetron 4 mg PO TID-QID PRN #10 tab 11/09/18 cyclobenzaprine 10 mg PO BEDTIME PRN #14 tab 06/28/19 Allergies Allergy/AdvReac Type Severity Reaction Status Date / Time No Known Drug Allergies Allergy Verified 11/08/18 18:57 Review of Systems Constitutional Constitutional: Denies chills, Denies fatigue, Denies fever(s), Denies frequent falls, Denies lethargy and Denies weakness Eyes Eyes: Denies change in vision, Denies eye discharge, Denies irritation and Denies loss of vision ENT Ears, Nose, Mouth, and Throat: Denies change in voice, Denies dizziness, Denies neck pain, Denies sore throat and Denies throat swelling Cardiovascular Cardiovascular: Denies chest pain, Denies irregular heart rhythm, Denies lightheadedness, Denies palpitations, Denies dyspnea, Denies dyspnea on exertion and Denies orthopnea Respiratory Respiratory: Denies cough, Denies dyspnea, Denies dyspnea on exertion and Denies wheezing Gastrointestinal Gastrointestinal: Reports abdominal pain, Denies change in bowel habits, Denies diarrhea, Denies nausea and Denies vomiting Genitourinary Genitourinary: Denies hematuria, Denies flank pain, Denies urinary incontinence and Denies urinary urgency Musculoskeletal Musculoskeletal: Denies back pain, Denies muscle weakness, Denies neck pain, Denies numbness and Denies tingling Integumentary/Breasts Skin/Breast: Denies pruritus, Denies erythema, Denies rash and Denies wounds Neurologic Neurologic: Denies behavioral changes, Denies confusion, Denies dizziness, Denies frequent falls, Denies loss of vision, Denies numbness, Denies tingling and Denies weakness Psychiatric Psychiatric: Denies anxiety, Denies behavioral changes, Denies confusion, Denies depression, Denies homicidal ideation and Denies suicidal ideation Endocrine Endocrine: Denies fatigue, Denies flushing and Denies palpitations Hematologic/Lymphatic Hematologic/Lymphatic: Denies easy bruising Allergic/Immunologic Allergic/Immunologic: Denies urticaria, Denies throat swelling and Denies wheezing Patient History Social History Smoking Status: Former smoker Smoking Status: Former smoker alcohol intake frequency: 0-2 drinks per day Substance Use Type: does not use Exam Narrative Exam Narrative: GENERAL: [19] year old patient appears stated age. Well-nourished, well-developed patient, in mild distress. HEAD: Atraumatic. Normocephalic. EYES: Pupils equal round and reactive. Extraocular motions intact. No scleral icterus. No injection or drainage. ENT: Nose without bleeding, purulent drainage. Throat without erythema, tonsillar hypertrophy or exudate. Airway patent. NECK: Trachea midline. Non tender CARDIOVASCULAR: Regular rate and rhythm without murmurs, gallops, or rubs. RESPIRATORY: Clear to auscultation. Breath sounds equal bilaterally. No wheezes, rales, or rhonchi. GASTROINTESTINAL: Abdomen soft, non-tender, nondistended. EXTREMITIES: No edema or joint tenderness. BACK: Nontender without deformity or crepitance. No flank tenderness. NEURO: AOx3. SKIN: No rash or erythema of visible areas Initial Vital Signs Initial Vital Signs: Vital Signs Temperature 98.2 F 07/03/19 23:22 Pulse Rate 98 H 07/03/19 23:22 Respiratory Rate 18 07/03/19 23:22 Blood Pressure 102/62 07/03/19 23:22 Pulse Oximetry 96 07/03/19 23:22 Course Orders Ordered: ED Orders 07/03/19 23:25 US pelvic complete Stat 07/03/19 23:40 Basic Metabolic Panel Stat Complete Blood Count AUTO DIFF Stat 07/04/19 01:00 Urinalysis and Microscopic Stat Vital Signs Vital signs: Vital Signs - 8 hr 07/03/19 23:22 07/04/19 00:06 Temperature 98.2 F Pulse Rate 98 H 85 Respiratory Rate 18 20 Blood Pressure 102/62 Blood Pressure [Left Arm] 102/64 Pulse Oximetry 96 98 MDM - Abdominal Pain Lab Data Result diagrams: 07/03/19 23:40 07/03/19 23:40 Labs: Lab Results 07/03/19 07/03/19 07/04/19 Range/Units 23:40 23:40 01:00 WBC 10.6 (4.5-11.0) X10^3/uL RBC 4.28 (4.0-5.2) X10^6/uL Hgb 13.5 (12.0-16.0) g/dL Hct 38.5 (36-46) % MCV 90.0 (80-100) fL MCH 31.6 (26-34) PG MCHC 35.1 (30-36) % RDW 12.5 (11.6-14.8) % Plt Count 308 (150-400) X10^3/uL Neut % (Auto) 63.4 (50-75) % Lymph % (Auto) 24.3 L (25-40) % [place] % (Auto) 10.0 (3-14) % Eos % (Auto) 2.1 (2-4) % Baso % (Auto) 0.2 (0-2) % Neut # (Auto) 6700 (7804-0603) /uL Lymph # (Auto) 2600 (4303-9948) /uL Thayer # (Auto) 1100 H (0-900) /uL Eos # (Auto) 200 (0-450) /uL Baso # (Auto) 0 (0-100) /uL Sodium 139 (137-145) mmol/L Potassium 3.9 (3.4-5.1) mmol/L Chloride 104 (98-107) mmol/L Carbon Dioxide 28 (22-32) mmol/L BUN 10 (7-17) mg/dL Creatinine 0.53 (0.52-1.04) mg/dL Estimated GFR > 60.0 (>60) mL/min BUN/Creatinine Ratio 18.9 (6-22) Glucose 120 H (70-100) mg/dL Calcium 9.2 (8.4-10.2) mg/dL Urine Color Yellow Urine Appearance Clear Urine pH 5.0 (4.5-8.0) Ur Specific [place] >=1.030 H (1.000-1.035) Urine Protein Negative (Negative) Urine Glucose (UA) Negative (Negative) g/dL Urine Ketones Trace H (NEGATIVE) Urine Occult Blood 3+ H (Negative) Urine Nitrate Negative (Negative) Urine Bilirubin Negative (NEGATIVE) Urine Urobilinogen 0.2 (0.2) E.U./dL Ur Leukocyte Esterase Negative (NEGATIVE) Urine RBC 5-10/hpf H (0-5/HPF) Urine WBC None seen (0-5/HPF) Ur Squamous Epith Cells 0-1 /hpf (0-5/HPF) Urine Bacteria Occasional (0-1) (None) Ur Culture Indicated? Cult not indicated Point of care testing: Point of Care Testing Test Results Negative Imaging Data Pelvic US: Radiologist's Impression: No explanation for pain MDM Narrative Medical decision making narrative: Ovarian cyst/torsion considered but thought less likely given lack of US findings. Ectopic considered, but patient not . Appencidicitis considered but thought less likely given lack of pain on exam, no fever, no elevated WBC, no anorexia, no vomiting, or other classic presenting symptoms. Return precautions given, questions answered to her apparent satisfaction. Discharge Plan Departure Patient Disposition: Home Clinical Impression: Abdominal pain Qualifiers: Abdominal location: right lower quadrant Qualified Code(s): R10.31 - Right lower quadrant pain Instructions: DI for Abdominal Pain-Adult Activity Restrictions/Additional Instructions: *You have been diagnosed with [acute episodic right lower quadrant pain] *What to do: *Take medications as directed *Follow up with your primary care provider in 2-3 days, call for an appointment. Let them know you were seen in the Emergency Department and that we ask that you be seen in follow up *Return to ER if you should have any new, worsening or concerning symptoms, such as [ ] Prescriptions: No Action ketorolac 10 mg tablet 10 mg PO Q6H PRN (Reason: pain) Qty: 14 RF: 0 ondansetron 4 mg tablet,disintegrating 4 mg PO TID-QID PRN (Reason: nausea and vomiting) Qty: 10 RF: 0 cyclobenzaprine 10 mg tablet 10 mg PO BEDTIME PRN (Reason: muscle spasm) Qty: 14 RF: 0
--- NOTE | 2019-07-03 23:25 | DI.US.S_ITS ---
PROCEDURE: US PELVIC COMPLETE INDICATIONS: RIGHT LOWER QUADRANT PAIN; VAGINAL BLEEDING TECHNIQUE: Real-time scanning was performed of the pelvic organs, with image documentation. Additional endovaginal scanning was necessary due to incomplete visualization of the adnexal and endometrial structures by transabdominal scanning. COMPARISON: None. FINDINGS: Transabdominal scanning: Limited scanning through the kidneys shows no hydronephrosis. No pathologic free abdominal or pelvic fluid. Endovaginal scanning: Uterus: Uterus is normal in size at 6.7 x 3.3 x 4.3 cm. The endometrium measures 8.4 mm in combined thickness. Ovaries: Right ovary measures 3.0 x 1.5 x 2.5 cm. Left ovary measures 4.1 x 1.8 x 3.1 cm. Ovaries are sonographically normal. Doppler evaluation demonstrates normal arterial and venous flow to the ovaries. Appendix is not identified and cannot be evaluated. IMPRESSION: 1. No evidence of ovarian torsion. Please note ultrasound cannot exclude intermittent ovarian torsion. 2. Appendix is not visualized and cannot be evaluated. The study does not exclude appendicitis. Dictated by: Kiana Griffin MD, PhD on 07/04/2019 at 9:09 Approved by: Kiana Griffin MD, PhD on 07/04/2019 at 9:16
[2019-07-03 23:48] LABS: Add Manual Diff / Slide Review NO; Basophils Absolute Auto 0 /uL (0-100); Basophils Percent Auto 0.2 % (0-2); Eosinophils Absolute Auto 200 /uL (0-450); Eosinophils Percent Auto 2.1 % (2-4); Hematocrit 38.5 % (36-46); Hemoglobin 13.5 g/dL (12.0-16.0); Lymphocytes Absolute Auto 2600 /uL (1100-4500); Lymphocytes Percent Auto 24.3 % (25-40); Mean Corpuscular HGB Conc 35.1 % (30-36); Mean Corpuscular Hemoglobin 31.6 PG (26-34); Monocytes Absolute Auto 1100 /uL (0-900); Neutrophils Absolute Auto 6700 /uL (1500-7000); Neutrophils Percent Auto 63.4 % (50-75); Platelet Count 308 X10^3/uL (150-400); Red Blood Cell Count 4.28 X10^6/uL (4.0-5.2); Red Cell Distribution Width 12.5 % (11.6-14.8); White Blood Cell Count 10.6 X10^3/uL (4.5-11.0)
[2019-07-03 23:59] LABS: BUN Creatinine Ratio 18.9 (6-22); Blood Urea Nitrogen 10 mg/dL (7-17); Calcium 9.2 mg/dL (8.4-10.2); Carbon Dioxide 28 mmol/L (22-32); Chloride 104 mmol/L (98-107); Estimated Glomerular Filt Rate > 60.0 mL/min (>60); Glucose 120 mg/dL (70-100); HEMOLYSIS < 15 (0-50); Potassium 3.9 mmol/L (3.4-5.1); Sodium 139 mmol/L (137-145)
[2019-07-04 00:06] VITALS: BP 102/64; PULSE 85; RESP 20; O2SAT 98
[2019-07-04 01:07] LABS: WBC Urine None Seen (0-5/HPF)
[2019-07-04 01:10] LABS: Appearance Urine UA CLEAR; Bilirubin Urine UA NEGATIVE (NEGATIVE); Color Urine UA YELLOW; Glucose Urine UA NEGATIVE (Negative); Ketones Urine UA TRACE (NEGATIVE); Leukocyte Esterase Urine UA NEGATIVE (NEGATIVE); Nitrite Urine UA NEGATIVE (Negative); Occult Blood Urine UA 3+ (Negative); Protein Urine UA NEGATIVE (Negative); Specific Gravity Urine UA >=1.030 (1.000-1.035); Urobilinogen Urine UA 0.2 E.U./dL (0.2)
[2019-07-04 01:28] LABS: Bacteria Urine Occasional (0-1); RBC Urine 5-10/HPF (0-5/HPF); Squamous Epithelial Cell Urine 0-1 /HPF (0-5/HPF)
[2019-07-04 01:29] LABS: Culture Indicated Urine Cult Not Indicated
[2019-07-04 02:09] VITALS: BP 101/56; PULSE 83; RESP 16; TEMP 36.7; O2SAT 99
== END 2019-07-04 01:50 | disposition home or self-care (01) ==
PROVIDERS: Emergency Provider Emergency Medicine
DX: R10.31 Right lower quadrant pain (principal)
CPT/HCPCS: 36415; 76830; 76856; 80048; 81001; 81025; 85025; 99283; 99284

== ENCOUNTER 2019-09-16 19:26 | Emergency (ER) | payer SELFPAY ==
[2019-09-16 19:32] VITALS: BP 154/76; PULSE 94; RESP 12; TEMP 36.4; O2SAT 99; BMI 44.9
--- NOTE | 2019-09-16 21:06 | PC.NURSE ---
Several small, red insect bites noted to R axilla area. Pt reports itching.
[2019-09-16 21:07] VITALS: BP 122/76; PULSE 89; RESP 16; O2SAT 97
--- NOTE | 2019-09-17 00:05 | ED_ITS ---
HPI - Skin/Abscess/Foreign Bdy General Chief complaint: Skin/Abscess/Foreign Body Stated complaint: RED BUMPS ON RIGHT ARM Time Seen by Provider: 09/16/19 20:00 Source: patient Mode of arrival: Ambulatory Limitations: no limitations History of Present Illness HPI narrative: 19F former smoker with non-contributory medical history presents with her significant other and the chief complaint of a few small itchy red s pots on the inside of her left upper arm. She states they itch and are not painful. She denies and urticaria or widespread rash. She denies trouble breathing or swallowing. She has no swelling of lips, tongue or face. She denies any obvious insect bite. She denies any history of the same. She has tried no therapies. MD complaint: rash and insect bite/sting Onset (ago): day(s) Tetanus up to date: no Location: RUE Severity: mild Quality: pruritic Exacerbating factors: none Context: none Treatments prior to arrival: none Related Data Previous Rx's Medication Instructions Recorded ketorolac 10 mg PO Q6H PRN #14 tab 11/09/18 ondansetron 4 mg PO TID-QID PRN #10 tab 11/09/18 cyclobenzaprine 10 mg PO BEDTIME PRN #14 tab 06/28/19 Allergies Allergy/AdvReac Type Severity Reaction Status Date / Time No Known Drug Allergies Allergy Verified 11/08/18 18:57 Review of Systems Constitutional Constitutional: Denies chills, Denies fatigue, Denies fever(s), Denies frequent falls, Denies lethargy and Denies weakness Eyes Eyes: Denies change in vision, Denies eye discharge, Denies irritation and Denies loss of vision ENT Ears, Nose, Mouth, and Throat: Denies change in voice, Denies dizziness, Denies neck pain, Denies sore throat and Denies throat swelling Cardiovascular Cardiovascular: Denies chest pain, Denies irregular heart rhythm, Denies lightheadedness, Denies palpitations, Denies dyspnea, Denies dyspnea on exertion and Denies orthopnea Respiratory Respiratory: Denies cough, Denies dyspnea, Denies dyspnea on exertion and Denies wheezing Gastrointestinal Gastrointestinal: Denies abdominal pain, Denies change in bowel habits, Denies diarrhea, Denies nausea and Denies vomiting Musculoskeletal Musculoskeletal: Denies neck pain and Denies numbness Integumentary/Breasts Skin/Breast: Denies pruritus, Denies erythema, Reports rash and Denies wounds Neurologic Neurologic: Denies behavioral changes, Denies confusion, Denies dizziness, Denies frequent falls, Denies loss of vision, Denies numbness and Denies weakness Psychiatric Psychiatric: Denies anxiety, Denies behavioral changes, Denies confusion, Denies depression, Denies homicidal ideation and Denies suicidal ideation Endocrine Endocrine: Denies fatigue, Denies flushing and Denies palpitations Hematologic/Lymphatic Hematologic/Lymphatic: Denies easy bruising Allergic/Immunologic Allergic/Immunologic: Denies urticaria, Denies throat swelling and Denies wheezing Patient History Medical History No significant medical problems (Acute) Social History Smoking Status: Former smoker Smoking Status: Former smoker alcohol intake frequency: a few times a month Substance Use Type: marijuana Exam Narrative Exam Narrative: GEN: AOx3 and in mild distress EYES: Pupils are equal, round, and reactive to light and accommodation. Extraoccular muscles are intact bilaterally. There is no subconjunctival hemorrhage or exudate. CHEST: Lungs are clear to auscultation bilaterally and free of wheezes, rales, or rhonchi. Heart rate is regular rhythm, there are no murmurs, clicks, rubs, or gallops. There is no chest wall tenderness. ABD: Abdomen is soft and nontender. There is no guarding or rebound. Bowel sounds are normal in all 4 quadrants. There is no mass or organomegaly. EXT: Full painless ROM of all extremities with no loss of sensation or strength. SKIN: 6 small erythematous spots on inside of left arm. No fluctuanace or induration, no surrounding erythema. No pain. No streaks Other marcelino. Warm, pink, and dry. No erythema or rash Initial Vital Signs Initial Vital Signs: Vital Signs Temperature 97.6 F 09/16/19 19:32 Pulse Rate 94 H 09/16/19 19:32 Respiratory Rate 12 09/16/19 19:32 Blood Pressure 154/76 H 09/16/19 19:32 Pulse Oximetry 99 09/16/19 19:32 Course Vital Signs Vital signs: Vital Signs - 8 hr 09/16/19 19:32 09/16/19 21:07 Temperature 97.6 F Pulse Rate 94 H 89 Respiratory Rate 12 16 Blood Pressure 154/76 H 122/76 Pulse Oximetry 99 97 MDM - Skin/Abscess/Foreign Bdy MDM Narrative Medical decision making narrative: Insect/spider bite vs. allergic reaction vs. folliculitis vs. other Discharge Plan Departure Patient Disposition: Home Clinical Impression: Insect bite Qualifiers: Encounter type: initial encounter Site of insect bite: upper arm Laterality: right Qualified Code(s): S40.861A - Insect bite (nonvenomous) of right upper arm, initial encounter Discharge Date/Time: 09/16/19 21:08 Instructions: DI for Insect Bites and Stings Activity Restrictions/Additional Instructions: *You have been diagnosed with [skin irritation likely a consequence of insect or spider bites] *What to do: *Take medications as directed: Consider trying [id number] steroid creams such as hydrocortisone as well as antihistamine such as loratadine or Benadryl *Follow up with your primary care provider in 2-3 days, call for an appointment. Let them know you were seen in the Emergency Department and that we ask that you be seen in follow up *Return to ER if you should have any new, worsening or concerning symptoms Prescriptions: No Action ketorolac 10 mg tablet 10 mg PO Q6H PRN (Reason: pain) Qty: 14 RF: 0 ondansetron 4 mg tablet,disintegrating 4 mg PO TID-QID PRN (Reason: nausea and vomiting) Qty: 10 RF: 0 cyclobenzaprine 10 mg tablet 10 mg PO BEDTIME PRN (Reason: muscle spasm) Qty: 14 RF: 0
== END 2019-09-16 21:08 | disposition home or self-care (01) ==
PROVIDERS: Emergency Provider Emergency Medicine
DX: S40.861A Insect bite (nonvenomous) of right upper arm, initial encounter (principal)
CPT/HCPCS: 99281

== ENCOUNTER 2019-09-28 19:17 | Emergency (ER) | payer SELFPAY ==
[2019-09-28] VITALS (9 sets, daily range): BP systolic 110–124; BP diastolic 56–64; PULSE 82–90; RESP 18; TEMP 36.8; O2SAT 97–99; BMI 44.9
--- NOTE | 2019-09-28 20:43 | DI.RAD.S_ITS ---
PROCEDURE: XR CHEST 1V INDICATIONS: chest pain TECHNIQUE: One view of the chest was acquired. COMPARISON: [facility], CR, XR CHEST 1V, 04/04/2019, 3:55. FINDINGS: Surgical changes and devices: None. Lungs and pleura: Lungs are clear. No pleural effusions or pneumothorax. Mediastinum: Mediastinal contours appear normal. Heart size is normal. Bones and chest wall: No suspicious bony lesions. Overlying soft tissues appear unremarkable. IMPRESSION: No acute cardiopulmonary pathology. Dictated by: Marko Christopher M.D. on 09/28/2019 at 21:28 Approved by: Marko Christopher M.D. on 09/28/2019 at 21:29
[2019-09-28 20:49] LABS: Add Manual Diff / Slide Review NO; Basophils Absolute Auto 0 /uL (0-100); Basophils Percent Auto 0.3 % (0-2); Eosinophils Absolute Auto 100 /uL (0-450); Eosinophils Percent Auto 0.7 % (2-4); Hematocrit 37.1 % (36-46); Hemoglobin 12.9 g/dL (12.0-16.0); Lymphocytes Absolute Auto 2600 /uL (1100-4500); Lymphocytes Percent Auto 24.5 % (25-40); Mean Corpuscular HGB Conc 34.7 % (30-36); Mean Corpuscular Hemoglobin 31.1 PG (26-34); Mean Corpuscular Volume 89.5 fL (80-100); Monocytes Absolute Auto 700 /uL (0-900); Monocytes Percent Auto 6.7 % (3-14); Neutrophils Absolute Auto 7200 /uL (1500-7000); Neutrophils Percent Auto 67.8 % (50-75); Platelet Count 303 X10^3/uL (150-400); Red Blood Cell Count 4.14 X10^6/uL (4.0-5.2); White Blood Cell Count 10.6 X10^3/uL (4.5-11.0)
[2019-09-28 20:55] LABS: Alanine Aminotransferase 25 IU/L (<35); Albumin 4.1 g/dL (3.5-5.0); Albumin Globulin Ratio 1.2 (1.0-2.8); Alkaline Phosphatase 68 U/L (38-126); Aspartate Aminotransferase 22 IU/L (14-36); BUN Creatinine Ratio 11.5 (6-22); Bilirubin Total 0.6 mg/dL (0.2-1.3); Blood Urea Nitrogen 6 mg/dL (7-17); Calcium 9.3 mg/dL (8.4-10.2); Carbon Dioxide 24 mmol/L (22-32); Chloride 108 mmol/L (98-107); Estimated Glomerular Filt Rate > 60.0 mL/min (>60); Globulin 3.3 g/dL (1.7-4.1); Glucose 100 mg/dL (70-100); HEMOLYSIS < 15 (0-50); Lipase 91 U/L (23-300); Potassium 3.7 mmol/L (3.4-5.1); Sodium 138 mmol/L (137-145); Total Protein 7.4 g/dL (6.3-8.2)
[2019-09-28 21:05] LABS: Pregnancy Test Serum,Qual Negative (Negative)
--- NOTE | 2019-09-28 21:08 | ED.NAVMDI ---
HPI - Nausea/Vomiting/Diarrhea General Chief complaint: Nausea/Vomiting/Diarrhea Stated complaint: Whole body pains/aches Time Seen by Provider: 09/28/19 20:42 Source: patient Mode of arrival: Ambulatory Limitations: no limitations History of Present Illness HPI Narrative: 19-year-old female here for evaluation of metallic taste in her mouth, low back pain, dizziness, or upper abdominal pain, generalized body aches, nausea for the past 2-4 months. Has not tried anything for her symptoms prior to arrival. Has not seen her primary doctor. Related Data Previous Rx's Medication Instructions Recorded ketorolac 10 mg PO Q6H PRN #14 tab 11/09/18 ondansetron 4 mg PO TID-QID PRN #10 tab 11/09/18 cyclobenzaprine 10 mg PO BEDTIME PRN #14 tab 06/28/19 Allergies Allergy/AdvReac Type Severity Reaction Status Date / Time No Known Drug Allergies Allergy Verified 11/08/18 18:57 Review of Systems Constitutional Constitutional: Reports fatigue and Denies fever(s) Cardiovascular Cardiovascular: Denies chest pain Respiratory Respiratory: Denies cough Gastrointestinal Gastrointestinal: Reports abdominal pain, Denies change in bowel habits and Reports nausea Genitourinary Genitourinary: Denies dysuria Genitourinary: Denies dysuria Integumentary/Breasts Skin/Breast: Denies rash Neurologic Neurologic: Denies behavioral changes Psychiatric Psychiatric: Denies behavioral changes Endocrine Endocrine: Reports fatigue Hematologic/Lymphatic Hematologic/Lymphatic: Denies easy bleeding and Denies easy bruising Patient History Medical History No significant medical problems (Acute) Social History Smoking Status: Former smoker Smoking Status: Former smoker alcohol intake frequency: 0-2 drinks per day Substance Use Type: marijuana Exam Initial Vital Signs Initial Vital Signs: Vital Signs Temperature 98.2 F 09/28/19 19:28 Pulse Rate 83 09/28/19 19:28 Respiratory Rate 18 09/28/19 19:28 Blood Pressure 124/59 L 09/28/19 19:28 Pulse Oximetry 98 09/28/19 19:28 Const General: cooperative and healthy appearing HENAL Head: normal to inspection and normocephalic Resp Effort & Inspection: normal respiratory effort Auscultation: clear to auscultation bilaterally Cardio Rate: regular rate Rhythm: regular rhythm GI Inspection: non-distended Palpation: soft and No firm Back/Spine/Pelvis Thoracic/Lumbar Spine: lumbar spinal tenderness Skin Lesions: no lesions Rashes: no rashes Neuro General: patient alert and patient awake Cognition: normal cognition Speech: speech normal Extrem General: normal to inspection and capillary refill normal Psych Appearance: grossly normal and well kempt Course Orders Ordered: Discontinued Medications Ondansetron HCl (Zofran Odt Prepack) 1 bottle MISC SEEINSTR ONE Stop: 09/28/19 21:48 Last Admin: 09/28/19 22:02 Dose: 1 bottle Documented by: JANEL Ondansetron HCl (Zofran Odt) 4 mg SL NOW ONE Stop: 09/28/19 21:48 Last Admin: 09/28/19 22:02 Dose: 4 mg Documented by: JANEL Vital Signs Vital signs: Vital Signs - 8 hr 09/28/19 22:01 Pulse Rate 85 Blood Pressure 110/57 L Pulse Oximetry 98 MDM - Nausea/Vomiting/Diarrhea Lab Data Attestation: I reviewed the patient's lab results. Result diagrams: 09/28/19 20:07 09/28/19 20:07 Labs: Lab Results 09/28/19 09/28/19 09/28/19 Range/Units 20:07 20:07 20:07 WBC 10.6 (4.5-11.0) X10^3/uL RBC 4.14 (4.0-5.2) X10^6/uL Hgb 12.9 (12.0-16.0) g/dL Hct 37.1 (36-46) % MCV 89.5 (80-100) fL MCH 31.1 (26-34) PG MCHC 34.7 (30-36) % RDW 13.0 (11.6-14.8) % Plt Count 303 (150-400) X10^3/uL Neut % (Auto) 67.8 (50-75) % Lymph % (Auto) 24.5 L (25-40) % [place] % (Auto) 6.7 (3-14) % Eos % (Auto) 0.7 L (2-4) % Baso % (Auto) 0.3 (0-2) % Neut # (Auto) 7200 H (1401-9576) /uL Lymph # (Auto) 2600 (8283-5980) /uL [place] # (Auto) 700 (0-900) /uL Eos # (Auto) 100 (0-450) /uL Baso # (Auto) 0 (0-100) /uL Sodium 138 (137-145) mmol/L Potassium 3.7 (3.4-5.1) mmol/L Chloride 108 H (98-107) mmol/L Carbon Dioxide 24 (22-32) mmol/L BUN 6 L (7-17) mg/dL Creatinine 0.52 (0.52-1.04) mg/dL Estimated GFR > 60.0 (>60) mL/min BUN/Creatinine Ratio 11.5 (6-22) Glucose 100 (70-100) mg/dL Calcium 9.3 (8.4-10.2) mg/dL Total Bilirubin 0.6 (0.2-1.3) mg/dL AST 22 (14-36) IU/L ALT 25 (<35) IU/L Alkaline Phosphatase 68 (38-126) U/L Total Protein 7.4 (6.3-8.2) g/dL Albumin 4.1 (3.5-5.0) g/dL Globulin 3.3 (1.7-4.1) g/dL Albumin/Globulin Ratio 1.2 (1.0-2.8) Lipase 91 (23-300) U/L Serum , Qual Negative (Negative) Urine Dip Bedside Urine Glucose Negative Bedside Urine Bilirubin - Negative Bedside Urine Ketone - Negative Urine Specific [place] 1.030 Bedside Urine Occult Blood - Negative Bedside Urine pH 6 Bedside Urine Protein +/- 15 Bedside Urine Urobilinogen - Negative Bedside Urine Nitrite - Negative Bedside Urine Leukocytes - Negative Esterase MDM Narrative Medical decision making narrative: Labs and physical exam unremarkable. Low suspicion for any acute emergent process given her history and physical. I feel patient can be safely discharged home. She was given return precautions. She expressed understanding and agreement. Discharge Plan Departure Patient Disposition: Home Clinical Impression: Body aches, Dizziness Fatigue Qualifiers: Fatigue type: unspecified Qualified Code(s): R53.83 - Other fatigue Discharge Date/Time: 09/28/19 22:17 Instructions: DI for Fatigue Activity Restrictions/Additional Instructions: All of your workup here in the emergency department today is unremarkable. Recommend that you continue to work on finding a primary provider. Take all of your medications as directed. Return to the emergency department for any new symptoms Prescriptions: No Action ketorolac 10 mg tablet 10 mg PO Q6H PRN (Reason: pain) Qty: 14 RF: 0 ondansetron 4 mg tablet,disintegrating 4 mg PO TID-QID PRN (Reason: nausea and vomiting) Qty: 10 RF: 0 cyclobenzaprine 10 mg tablet 10 mg PO BEDTIME PRN (Reason: muscle spasm) Qty: 14 RF: 0
[2019-09-28] MEDS: ONDANSETRON 4 MG ODT PREPACK 1 BOTTLE MISC (22:02)
[2019-09-28] MEDS: ONDANSETRON 4 MG ODT SL (22:02)
== END 2019-09-28 22:17 | disposition home or self-care (01) ==
PROVIDERS: Emergency Provider Emergency Medicine
DX: R10.9 Unspecified abdominal pain (principal); R11.0 Nausea; R53.83 Other fatigue; R42 Dizziness and giddiness; R07.9 Chest pain, unspecified
CPT/HCPCS: 36415; 71045; 80053; 81003; 83690; 84703; 85025; 99284

== ENCOUNTER → 2020-03-30 15:07 | Outpatient (CLI) | payer OTHER, MEDICAID, SELFPAY ==
[2020-03-30 15:51] LABS: Add Manual Diff / Slide Review NO; Basophils Absolute Auto 0 /uL (0-100); Basophils Percent Auto 0.4 % (0-2); Eosinophils Absolute Auto 100 /uL (0-450); Eosinophils Percent Auto 1.2 % (2-4); Hematocrit 38.4 % (36-46); Hemoglobin 13.2 g/dL (12.0-16.0); Lymphocytes Absolute Auto 2300 /uL (1100-4500); Lymphocytes Percent Auto 21.9 % (25-40); Mean Corpuscular HGB Conc 34.4 % (30-36); Mean Corpuscular Hemoglobin 30.8 PG (26-34); Mean Corpuscular Volume 89.4 fL (80-100); Monocytes Absolute Auto 700 /uL (0-900); Monocytes Percent Auto 7.1 % (3-14); Neutrophils Absolute Auto 7300 /uL (1500-7000); Neutrophils Percent Auto 69.4 % (50-75); Platelet Count 284 X10^3/uL (150-400); Red Cell Distribution Width 12.5 % (11.6-14.8); White Blood Cell Count 10.5 X10^3/uL (4.5-11.0)
[2020-03-30 16:09] LABS: Alanine Aminotransferase 26 IU/L (<35); Albumin Globulin Ratio 1.3 (1.0-2.8); Alkaline Phosphatase 75 U/L (38-126); Aspartate Aminotransferase 24 IU/L (14-36); BUN Creatinine Ratio 15.3 (6-22); Bilirubin Total 0.3 mg/dL (0.2-1.3); Blood Urea Nitrogen 9 mg/dL (7-17); Calcium 8.7 mg/dL (8.4-10.2); Carbon Dioxide 28 mmol/L (22-32); Chloride 105 mmol/L (98-107); Estimated Glomerular Filt Rate > 60.0 mL/min (>60); Globulin 3.2 g/dL (1.7-4.1); Glucose 101 mg/dL (70-100); HEMOLYSIS < 15 (0-50); Potassium 4.1 mmol/L (3.4-5.1); Sodium 137 mmol/L (137-145); Total Protein 7.2 g/dL (6.3-8.2)
[2020-03-30 16:46] LABS: Free T4, Direct Thyroxine 1.12 ng/dL (0.78-2.19)
[2020-03-30 17:00] LABS: Thyroid Stimulating Hormone 2.51 uIU/mL (0.47-4.68)
== END ==
PROVIDERS: PCP Registered Nurse; Referring Provider Registered Nurse; Visit Provider Registered Nurse
DX: F32.9 Major depressive disorder, single episode, unspecified (principal); F41.9 Anxiety disorder, unspecified; R53.83 Other fatigue
CPT/HCPCS: 36415; 80053; 84439; 84443; 85025

== ENCOUNTER 2021-03-23 17:34 | Emergency (ER) | payer OTHER, MEDICAID, SELFPAY ==
[2021-03-23 17:42] VITALS: BP 115/70; PULSE 96; RESP 20; TEMP 36.6; O2SAT 98
[2021-03-23 18:13] LABS: COVID19 -Nasal RAPID POSITIVE (Negative)
--- NOTE | 2021-03-23 19:35 | ED_ITS ---
HPI - URI/Sore Throat General Chief Complaint: Fever Stated Complaint: body aches, fever off and on Time Seen by Provider: 03/23/21 19:34 Source: patient Mode of arrival: Ambulatory History of Present Illness HPI Narrative: Patient is a healthy 21-year-old female unvaccinated for COVID presenting with 3 days of body aches dry nonproductive cough mild diarrhea mild sore throat. She is positive for COVID. She has no shortness of breath. Related Data Previous Rx's Medication Instructions Recorded cyclobenzaprine 10 mg tablet 10 mg PO BEDTIME PRN #14 tab 06/28/19 sertraline 25 mg tablet (Zoloft) 25 mg PO DAILY #30 tab 03/30/20 Allergies Allergy/AdvReac Type Severity Reaction Status Date / Time No Known Drug Allergies Allergy Verified 04/20/20 08:28 Review of Systems Review of Systems Narrative: GENERAL: See HPI HEENT: See HPI RESPIRATORY: Denies dyspnea, cough, wheezing CARDIOVASCULAR: Denies chest pain, palpitations GASTROINTESTINAL: Denies nausea, vomiting MUSCULOSKELETAL: Denies extremity pain, injury SKIN: No rash, no laceration, no pruritus NEUROLOGIC: Denies weakness, dizziness, headache, numbness 8 point review of systems is negative except for those stated above and HPI Patient History Medical History (Updated 03/23/21 @ 19:44 by Olivia Nicole DO) No significant medical problems Family History (Updated 05/03/20 @ 22:15 by Sara Osborne) Father Mental health problem Mother Mental health problem Grandmother Diabetes mellitus Social History Smoking Status: Former smoker Smoking Status: Former smoker alcohol intake frequency: holidays/special occasions only Substance Use Type: marijuana Exam Initial Vital Signs Initial Vital Signs: Vital Signs Temperature 97.8 F 03/23/21 17:42 Pulse Rate 96 H 03/23/21 17:42 Respiratory Rate 20 03/23/21 17:42 Blood Pressure 115/70 03/23/21 17:42 Pulse Oximetry 98 03/23/21 17:42 GENERAL: Alert well-appearing 21-year-old female HEENT: Head atraumatic,EOMI, pupils reactive, face symmetric, moist mucous membranes CARDIOVASCULAR: Regular rate and rhythm without murmurs, rubs or gallops. RESPIRATORY: Breath sounds equal bilaterally, no wheezes rales or rhonchi EXTREMITIES: Normal range of motion, no clubbing or edema. Neurovascularly intact NEUROLOGICAL: Alert and oriented x4.Normal gait and speech. SKIN: Warm, dry, no laceration, no petechiae, no rashes or lesions. Course Orders Ordered: ED Orders 03/23/21 17:56 COVID19 -Nasal swab/Pre-Proc Stat Vital Signs Vital signs: Vital Signs - 8 hr 03/23/21 17:42 Temperature 97.8 F Pulse Rate 96 H Respiratory Rate 20 Blood Pressure 115/70 Pulse Oximetry 98 MDM - URI/Sore Throat Lab Data Labs: Lab Results 03/23/21 Range/Units 17:56 SARS-CoV-2 (PCR) Positive H (Negative) Discharge Plan Departure Patient Disposition: Home Clinical Impression: COVID-19 Instructions: DI for COVID-19 (Suspected or Confirmed ) Activity Restrictions/Additional Instructions: * if you have not yet been vaccinated is still recommended and encouraged that you do so once your infection has passed *Follow up with your primary provider in 2-3 days or call [phone] AT HOME: -Monitor oxygen with pulse oximeter. If less than 90% for more than 1 hour please return to emergency department -I recommend lying on stomach for side rather than back, it has been proven to increase oxygen levels -Wash hands frequently. -Stay isolated at home please follow the isolation instructions below. -Increase fluid intake. -you may take Tylenol as directed if needed for pain or fever EMERGENCY warning signs for COVID-19: - Difficulty breathing or shortness of breath, oxygen less than 90% - Persistent pain or pressure in the chest - New confusion or inability to arouse - Bluish lips or face CDC Guidelines for home isolation: - Stay away from others - Limit contact with pets and animals: If you must care for a pet, wash your hands before and after interacting with them - Wear a mask while in public all places - Cover your mouth and nose with a tissue when you cough or sneeze. Dispose of tissues in a lined trash can and wash your hands immediately with soap and water for at least 20 seconds. If soap and water are not available, clean hands with alcohol-based hand automotive service management teacher that contains at least 60% alcohol. - Clean your hands often with soap and water for at least 20 seconds - Avoid touching your eyes, nose and mouth with unwashed hands - Do not share dishes, drinking glasses, cups, eating utensils, towels, or bedding with other people in your home. After using these items, wash them thoroughly with soap and water or put in the appliance line assembler. - Clean high-touch surfaces in your isolation area (?sick room? and bathroom) every day; let a caregiver clean and disinfect high-touch surfaces in other areas of the home. Clean the area or item with soap and water or another detergent if it is dirty. Then, use a household disinfectant. Prescriptions: No Action sertraline [Zoloft] 25 mg tablet 25 mg PO DAILY Qty: 30 2RF cyclobenzaprine 10 mg tablet 10 mg PO BEDTIME PRN (Reason: muscle spasm) Qty: 14 0RF Referrals: Shayy Alcantara ARNP [Primary Care Provider] -
== END 2021-03-23 19:48 | disposition home or self-care (01) ==
PROVIDERS: Emergency Medicine; Emergency Provider Emergency Medicine; PCP Registered Nurse
DX: U07.1 COVID-19 (principal); Z87.891 Personal history of nicotine dependence
CPT/HCPCS: 87635; 99281; C9803

== ENCOUNTER → 2021-04-12 09:16 | Outpatient (CLI) | payer OTHER, MEDICAID, SELFPAY ==
--- NOTE | 2021-04-12 09:18 | DI.RAD.S_ITS ---
PROCEDURE: XR THORACIC SPINE 3V INDICATIONS: back pain, locking TECHNIQUE: 3 views of the thoracic spine were acquired. COMPARISON: None. FINDINGS: Bones: No fractures or dislocations. No suspicious bony lesions. 12 pairs of ribs are noted, and appear intact where visualized. Soft tissues: No paravertebral stripe thickening. IMPRESSION: Unremarkable thoracic spine radiographs Approved by: Carter Mandel M.D. on 04/12/2021 at 11:18
--- NOTE | 2021-04-12 09:18 | DI.RAD.S_ITS ---
PROCEDURE: XR RIBS RT MIN 3V W CXR 1V INDICATIONS: right posterior rib pain TECHNIQUE: 2 views of the right ribs were acquired, along with a single view chest. COMPARISON: None. FINDINGS: Surgical changes and devices: None. Bones and chest wall: No fractures or dislocations. No suspicious bony lesions. Overlying soft tissues appear unremarkable. Lungs and pleura: No pleural effusions or pneumothorax. Lungs appear clear. Mediastinum: Mediastinal contours appear normal. Heart size is normal. IMPRESSION: Unremarkable right ribs without fracture or pneumothorax No acute cardiopulmonary findings Approved by: Carter Mandel M.D. on 04/12/2021 at 11:17
== END ==
PROVIDERS: PCP Registered Nurse; Referring Provider Registered Nurse; Visit Provider Registered Nurse
DX: R07.81 Pleurodynia (principal); M54.9 Dorsalgia, unspecified
CPT/HCPCS: 71101; 72072

== ENCOUNTER 2022-01-31 23:38 | Emergency (ER) | payer OTHER, MEDICAID, SELFPAY ==
[2022-01-31 23:45] VITALS: BP 130/80; PULSE 94; RESP 18; TEMP 36.6; O2SAT 98; BMI 48.9
--- NOTE | 2022-01-31 23:53 | ED.BACK ---
HPI - Back Pain/Injury General Chief Complaint: Back Pain/Injury Stated Complaint: BACK PAIN Time Seen by Provider: 01/31/22 23:45 History of Present Illness HPI Narrative: 21-year-old female nonsmoker with history of ADHD, anxiety, depression and BMI 40.9 presents with significant other and a chief complaint of bilateral flank pain for many months. She states her pain seems to be worse when she moves and improves with rest. She denies much in the way of midline pain. She is had no trauma, injury or overuse. She does state that she is been seen and evaluated multiple times with negative imaging yet no specific diagnosis. She is not dizzy nor weak or lightheaded. She denies chest pain, shortness of breath or cough. She denies nausea, vomiting or diarrhea. She denies any significant dysuria, frequency or urgency and has no vaginal bleeding or discharge. She denies loss of control of bowel or bladder nor lower extremity weakness. She does not use IV drugs and takes no blood thinners. Her pain seems to come and go at times and when present is worse when she moves and improves with rest Related Data Previous Rx's Medication Instructions Recorded cyclobenzaprine 10 mg tablet 10 mg PO BEDTIME PRN muscle spasm 06/28/19 #14 tabs cephalexin 500 mg capsule 500 mg PO BID #14 caps 02/01/22 cyclobenzaprine 10 mg tablet 10 mg PO TID PRN muscle spasm #14 02/01/22 tabs ketorolac 10 mg tablet 10 mg PO Q6H PRN pain #14 tabs 02/01/22 Allergies Allergy/AdvReac Type Severity Reaction Status Date / Time No Known Drug Allergies Allergy Verified 04/12/21 08:48 Review of Systems Review of Systems Narrative: GENERAL: See HPI HEENT: Denies sinus pain, ear pain, sore throat, difficulty swallowing, dizziness. RESPIRATORY: Denies dyspnea, cough, wheezing, hemoptysis, sputum. CARDIOVASCULAR: Denies chest pain, palpitations, orthopnea, edema, GASTROINTESTINAL: Denies nausea, vomiting, abdominal pain, diarrhea, constipation, melena. : D see HPI MUSCULOSKELETAL: See HPI SKIN: Denies rash, skin lesions, or other NEUROLOGIC: Denies weakness, headache, numbness, change in speech, confusion, seizures, incoordination. PSYCHIATRIC: No concerning psychosocial issues. 12 point review of systems is negative except for those stated above Patient History Medical History Back pain No significant medical problems Rib pain on right side Family History Father Mental health problem Mother Mental health problem Grandmother Diabetes mellitus Social History Smoking Status: Former smoker Smoking Status: Former smoker alcohol intake frequency: holidays/special occasions only Substance Use Type: marijuana Exam Narrative Exam Narrative: GENERAL: [21] year old patient appears stated age. Well-developed patient, in mild distress. HEAD: Atraumatic. Normocephalic. EYES: Pupils equal round and reactive. Extraocular motions intact. No scleral icterus. No injection or drainage. ENT: Nose without bleeding, purulent drainage. Throat without erythema, tonsillar hypertrophy or exudate. Airway patent. NECK: Trachea midline. Non tender CARDIOVASCULAR: Regular rate and rhythm without murmurs, gallops, or rubs. RESPIRATORY: Clear to auscultation. Breath sounds equal bilaterally. No wheezes, rales, or rhonchi. GASTROINTESTINAL: Abdomen soft, non-tender, nondistended. EXTREMITIES: No edema or joint tenderness. BACK: laminating machine tender but free of any obvious external abnormalities. Patient exam notes decreased range of motion and muscle spasm, but no CVA tenderness, or vertebral point tenderness. There are no symptoms of cauda equina such as saddle anesthesia, and decreased reflexes, decreased sensation or strength. NEURO: AOx3. SKIN: No rash or erythema of visible areas Initial Vital Signs Initial Vital Signs: Vital Signs Temperature 98 F 01/31/22 23:45 Pulse Rate 94 H 01/31/22 23:45 Respiratory Rate 18 01/31/22 23:45 Blood Pressure 130/80 01/31/22 23:45 Pulse Oximetry 98 01/31/22 23:45 Oxygen Delivery Method 01/31/22 23:45 Course Orders Ordered: ED Orders 02/01/22 00:27 Urine Culture Stat Urine Microscopic Stat Discontinued Medications Cefazolin Sodium (Cephalexin 250 Mg Prepack) 1 bottle MISC SEEINSTR ONE Stop: 02/01/22 00:21 Last Admin: 02/01/22 00:41 Dose: 1 bottle Documented By: MLM Cyclobenzaprine HCl (Cyclobenzaprine 10 Mg Prepack) 1 bottle MISC SEEINSTR ONE Stop: 01/31/22 23:52 Last Admin: 02/01/22 00:05 Dose: 1 bottle Documented By: VANNESA Ketorolac Tromethamine (Ketorolac 30 Mg/Ml Vial) 30 mg IM NOW ONE Stop: 01/31/22 23:52 Last Admin: 02/01/22 00:05 Dose: 30 mg Documented By: VANNESA Vital Signs Vital signs: Vital Signs - 8 hr 01/31/22 23:45 Temperature 98 F Pulse Rate 94 H Respiratory Rate 18 Blood Pressure 130/80 Pulse Oximetry 98 Oxygen Delivery Method Room Air MDM - Back Pain/Injury Lab Data Labs: Lab Results 02/01/22 Range/Units 00:19 Urine RBC 0-1/hpf (0-5/HPF) Urine WBC 0-1/hpf (0-5/HPF) Ur Squamous Epith Cells 5-10 /hpf H (0-5/HPF) Urine Bacteria Many (>30) H (None) Micro UA Comment Urine Dip Bedside Urine Glucose Negative Bedside Urine Bilirubin - Negative Bedside Urine Ketone - Negative Urine Specific [place] 1.030 Bedside Urine Occult Blood - Negative Bedside Urine pH 6 Bedside Urine Protein - Negative Bedside Urine Urobilinogen 1+ 2mg Bedside Urine Nitrite - Negative Bedside Urine Leukocytes + 70 Esterase MDM Narrative Medical decision making narrative: 21-year-old female with history of ADHD, elevated BMI depression presents for evaluation of chronic back pain in the absence of injury. Differential diagnosis includes musculoskeletal pain, pyelonephritis, epidural abscess, epidural hematoma versus other. Multiple prior emergency department notes reviewed including prior T-spine imaging noting no significant findings. She denies systemic complaints such as fever, chills nor nausea or vomiting. Urine does demonstrate leukocytes and will therefore treat with antibiotics. Patient has had no traumatic injury, repeat imaging not indicated. Neurosurgical emergency such as epidural abscess considered but thought unlikely given lack of supporting physical exam or history elements. Will treat for musculoskeletal pain and UTI, prescriptions and pre packs dispensed, return precautions discussed and questions answered to her apparent satisfaction Discharge Plan Departure Patient Disposition: Home Clinical Impression: UTI (urinary tract infection), Back pain Instructions: DI for Urinary Tract Infection (UTI), DI for Back Spasm Activity Restrictions/Additional Instructions: *You have been diagnosed with [urinary tract infection and acute on chronic bilateral flank pain] *What to do: *Please continue to take your regular medications as directed. [x ] New medication prescriptions sent to your pharmacy: [ [facility]] [ ] New medication written as a paper prescription [ ] No new medications given *Please follow up with your primary care provider in 2-3 days, call for an appointment. Let them know you were seen in the Emergency Department and that we ask that you be seen in follow up. We will electronically transmit a record of today's note if your PCP is in our system *If you do not have a primary care provider please contact the [facility] Resource line at [phone]. They will ask some questions about your medical history and help get you set up with a doctor in the community. *Return to Emergency Department if you should have any new, worsening or concerning symptoms, such as [fever greater than 101 F, shaking chills, worsening pain, persistent vomiting or other bothersome symptoms] Prescriptions: New cyclobenzaprine 10 mg tablet 10 mg PO TID PRN (Reason: muscle spasm) Qty: 14 0RF ketorolac 10 mg tablet 10 mg PO Q6H PRN (Reason: pain) Qty: 14 0RF cephalexin 500 mg capsule 500 mg PO BID Qty: 14 0RF No Action cyclobenzaprine 10 mg tablet 10 mg PO BEDTIME PRN (Reason: muscle spasm) Qty: 14 0RF Stand Alone Forms: Work Release Note Visit Report Forms: Patient Portal/API
[2022-02-01] MEDS: KETOROLAC 30 MG/ML VIAL IM (00:05)
[2022-02-01] MEDS: CYCLOBENZAPRINE 10 MG PREPACK 1 BOTTLE MISC (00:05)
[2022-02-01 00:37] LABS: Bacteria Urine Many (>30); RBC Urine 0-1/HPF (0-5/HPF); Squamous Epithelial Cell Urine 5-10 /HPF (0-5/HPF); WBC Urine 0-1/HPF (0-5/HPF)
[2022-02-01] MEDS: cephALEXin 250 MG PREPACK 1 BOTTLE MISC (00:41)
== END 2022-02-01 00:46 | disposition home or self-care (01) ==
PROVIDERS: Emergency Provider Emergency Medicine
DX: N39.0 Urinary tract infection, site not specified (principal); M54.9 Dorsalgia, unspecified
CPT/HCPCS: 81003; 81015; 87086; 96372; 99283; J1885

== ENCOUNTER 2022-04-09 17:46 | Emergency (ER) | payer OTHER, MEDICAID, SELFPAY ==
[2022-04-09] VITALS (7 sets, daily range): BP systolic 118–139; BP diastolic 63–92; PULSE 78–90; RESP 20; TEMP 36.8; O2SAT 98–100
[2022-04-09] MEDS: KETOROLAC 30 MG/ML VIAL IM (19:38)
[2022-04-09 20:03] LABS: Bacteria Urine Occasional (0-1); Culture Indicated Urine Cult Not Indicated; Mucus Urine 1+ (Negative); RBC Urine 1-5/HPF (0-5/HPF); Squamous Epithelial Cell Urine 1-5 /HPF (0-5/HPF); WBC Urine 1-5/HPF (0-5/HPF)
--- NOTE | 2022-04-09 21:22 | ED_ITS ---
HPI - General Adult General Chief complaint: Abdominal Pain Stated complaint: abd pain x1 day Source: patient Mode of arrival: Ambulatory History of Present Illness HPI narrative: 22-year-old woman with history of anxiety and depression presents with upper anterior abdominal wall pain. She denies any recent change to activity or trauma. She has had no fevers, cough, chills, nausea, vomiting or diarrhea. She has no lower abdominal tenderness. She has not had pain quite like this previously. She states it is worse when she leans back in when she stretches. She is not tried any medications to treat this yet. Pain started as of this morning Related Data Previous Rx's Medication Instructions Recorded cyclobenzaprine 10 mg tablet 10 mg PO BEDTIME PRN muscle spasm 06/28/19 #14 tabs cephalexin 500 mg capsule 500 mg PO BID #14 caps 02/01/22 cyclobenzaprine 10 mg tablet 10 mg PO TID PRN muscle spasm #14 02/01/22 tabs ketorolac 10 mg tablet 10 mg PO Q6H PRN pain #14 tabs 02/01/22 Allergies Allergy/AdvReac Type Severity Reaction Status Date / Time No Known Drug Allergies Allergy Verified 04/12/21 08:48 Review of Systems Review of Systems Narrative: Remainder of complete review of systems is otherwise unremarkable except for that included in the HPI. Patient History Medical History Back pain No significant medical problems Rib pain on right side Family History Father Mental health problem Mother Mental health problem Grandmother Diabetes mellitus Social History Smoking Status: Current some day smoker Smoking Status: Current some day smoker tobacco type: cigarettes alcohol intake frequency: 0-2 drinks per day Substance Use Type: marijuana Exam Initial Vital Signs Initial Vital Signs: Vital Signs Temperature 98.2 F 04/09/22 17:58 Pulse Rate 84 04/09/22 17:58 Respiratory Rate 20 04/09/22 17:58 Blood Pressure 139/92 H 04/09/22 17:58 Pulse Oximetry 98 04/09/22 17:58 Oxygen Delivery Method 04/09/22 17:58 General: Healthy appearing, in no acute distress. Able to give a complete and coherent history. Well-nourished well-developed Respiratory: Lungs are clear to auscultation, no wheezing no rales no rhonchi. Full and symmetrical air movement Cardiac: Regular rate and rhythm no murmurs no bruits Abdomen: Soft, nontender, good bowel tones, no flank pain Thorax: She has specific point tenderness along musculoskeletal insertions bilaterally anterior ribs with no erythema, swelling or bruising Skin: Warm and dry, no rashes, small Hickey on the left side of her neck Neurologic: Grossly neurologically intact with no obvious asymmetries or abnormalities Extremities: No trauma, well perfused Psych: Cooperative, appropriate insight and affect Course Orders Ordered: ED Orders 04/09/22 19:28 Urine Microscopic Stat Discontinued Medications Ketorolac Tromethamine (Ketorolac 30 Mg/Ml Vial) 30 mg IM NOW ONE Stop: 04/09/22 19:24 Last Admin: 04/09/22 19:38 Dose: 30 mg Documented By: SANTO Vital Signs Vital signs: Vital Signs - 8 hr 04/09/22 17:58 04/09/22 19:27 04/09/22 19:27 Temperature 98.2 F Pulse Rate 84 89 Respiratory Rate 20 Blood Pressure 139/92 H 131/71 Pulse Oximetry 98 99 Oxygen Delivery Method Room Air Room Air 04/09/22 19:30 04/09/22 19:30 04/09/22 20:00 Temperature Pulse Rate 90 Respiratory Rate Blood Pressure 128/68 122/63 Pulse Oximetry 100 Oxygen Delivery Method Room Air 04/09/22 20:00 04/09/22 20:30 Temperature Pulse Rate 81 78 Respiratory Rate Blood Pressure Pulse Oximetry 98 98 Oxygen Delivery Method Room Air Room Air Medical Decision Making Lab Data Labs: Lab Results 04/09/22 Range/Units 19:28 Urine RBC 1-5/hpf (0-5/HPF) Urine WBC 1-5/hpf (0-5/HPF) Ur Squamous Epith Cells 1-5 /hpf (0-5/HPF) Urine Bacteria Occasional (0-1) (None) Urine Mucus 1+ H (Negative) Ur Culture Indicated? Cult not indicated Point of Care Testing Test Results Negative Urine Dip Bedside Urine Glucose Negative Bedside Urine Bilirubin - Negative Bedside Urine Ketone - Negative Urine Specific [place] 1.025 Bedside Urine Occult Blood - Negative Bedside Urine pH 6.0 Bedside Urine Protein +/- 15 Bedside Urine Urobilinogen +/- 1mg Bedside Urine Nitrite - Negative Bedside Urine Leukocytes - Negative Esterase Point of care testing: Point of Care Testing Test Results Negative Urine Dip Bedside Urine Glucose Negative Bedside Urine Bilirubin - Negative Bedside Urine Ketone - Negative Urine Specific [place] 1.025 Bedside Urine Occult Blood - Negative Bedside Urine pH 6.0 Bedside Urine Protein +/- 15 Bedside Urine Urobilinogen +/- 1mg Bedside Urine Nitrite - Negative Bedside Urine Leukocytes - Negative Esterase MDM Narrative Medical decision making narrative: CC: Upper abdominal pain. This is a new, acute problem with uncertain prognosis Complicating co-morbidities: Anxiety and depression Corroborating data: Data collected from: patient, Differential considered: Musculoskeletal pain, liver pathology, cholecystitis, gastritis or gastric ulcer, pancreatitis, splenic abnormality, constipation with tenderness along the transverse colon Exam documented above, pertinent findings include: Entirely benign exam with the exception of point tenderness along anterior rib margins bilaterally consistent with musculoskeletal etiology Treatment: IM Toradol Discussion: 22-year-old woman with upper abdominal wall insertion tenderness along anterior ribs. Toradol did help with her pain. There is no evidence of more significant pathology, intra-abdominal abnormality. Based on her exam we discussed the likely diagnosis and with shared decision-making opted to not p roceed with any additional testing or imaging at this time. Questions are answered and she is safe for discharge home Disposition: see below, along with detailed discharge instructions that have b een reviewed with patient as well as indications for ED re-evaluation and additional outpatient follow up Discharge Plan Departure Patient Disposition: Home Clinical Impression: Abdominal wall pain Activity Restrictions/Additional Instructions: Thank you for coming in today Your exam suggests that your pain is related to musculoskeletal abnormalities. 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 This is self-limited and will improve. Using 400 mg of ibuprofen (2 [id number] pills) and 1 Tylenol every 6 hours can be very helpful in controlling pain. Based on your exam I am not concerned today for liver abnormalities, gallbladder problems, stomach ulcers, pancreatitis, severe constipation or anything that would require surgery or further workup. If you find that you are getting worse or develop any new symptoms, please feel free to return to the emergency department for further evaluation. Prescriptions: No Action cyclobenzaprine 10 mg tablet 10 mg PO BEDTIME PRN (Reason: muscle spasm) Qty: 14 0RF cyclobenzaprine 10 mg tablet 10 mg PO TID PRN (Reason: muscle spasm) Qty: 14 0RF ketorolac 10 mg tablet 10 mg PO Q6H PRN (Reason: pain) Qty: 14 0RF cephalexin 500 mg capsule 500 mg PO BID Qty: 14 0RF Stand Alone Forms: Patient Portal/API
== END 2022-04-09 21:42 | disposition home or self-care (01) ==
PROVIDERS: Emergency Provider Emergency Medicine
DX: R10.10 Upper abdominal pain, unspecified (principal)
CPT/HCPCS: 81003; 81015; 81025; 96372; 99283; J1885

== ENCOUNTER 2022-05-02 23:46 | Emergency (ER) | payer OTHER, MEDICAID, SELFPAY ==
--- NOTE | 2022-05-02 23:51 | DI.RAD.S_ITS ---
PROCEDURE: XR CHEST 1V INDICATIONS: cough TECHNIQUE: One view of the chest was acquired. COMPARISON: [facility], CR, XR CHEST 1V, 09/28/2019, 20:39. FINDINGS: Surgical changes and devices: None. Lungs and pleura: Lungs are clear. No pleural effusions or pneumothorax. Mediastinum: Mediastinal contours appear normal. Heart size is normal. Bones and chest wall: No suspicious bony lesions. Overlying soft tissues appear unremarkable. IMPRESSION: 1. No acute cardiopulmonary disease. Dictated by: Sami Mg M.D. on 05/03/2022 at 0:53 Approved by: Sami Mg M.D. on 05/03/2022 at 0:53
[2022-05-02 23:57] VITALS: BP 126/72; PULSE 106; RESP 18; TEMP 36.8; O2SAT 97; BMI 46.7
[2022-05-03 00:24] LABS: COVID19 -Nasal RAPID Negative (Negative)
--- NOTE | 2022-05-03 03:27 | ED.SOB ---
HPI - SOB/Dyspnea General Chief Complaint: Shortness of Breath/Dyspnea Stated Complaint: cough that wont go away Time Seen by Provider: 05/03/22 03:07 Source: patient Mode of arrival: Ambulatory Limitations: no limitations History of Present Illness HPI Narrative: Patient is a 22-year-old healthy female who presents with cough ongoing for the last 3 days. She was actually diagnosed with COVID by a home test about a week ago she has a persistent nonproductive cough. She remains afebrile. Every time she takes a breath she coughs. Related Data Previous Rx's Medication Instructions Recorded cyclobenzaprine 10 mg tablet 10 mg PO BEDTIME PRN muscle spasm 06/28/19 #14 tabs cephalexin 500 mg capsule 500 mg PO BID #14 caps 02/01/22 cyclobenzaprine 10 mg tablet 10 mg PO TID PRN muscle spasm #14 02/01/22 tabs ketorolac 10 mg tablet 10 mg PO Q6H PRN pain #14 tabs 02/01/22 cefdinir 300 mg capsule 300 mg PO Q12H #20 caps 05/03/22 hydrocodone-homatropine 5 mg-1.5 5 ml PO Q6H PRN cough #100 mL 05/03/22 mg/5 mL oral syrup prednisone 20 mg tablet 40 mg PO DAILY #10 tabs 05/03/22 Allergies Allergy/AdvReac Type Severity Reaction Status Date / Time No Known Drug Allergies Allergy Verified 04/12/21 08:48 Review of Systems Review of Systems ROS Unobtainable: All systems reviewed & are unremarkable except as noted in HPI and below Patient History Medical History Back pain No significant medical problems Rib pain on right side Family History Father Mental health problem Mother Mental health problem Grandmother Diabetes mellitus Social History Smoking Status: Current some day smoker Smoking Status: Current some day smoker tobacco type: cigarettes alcohol intake frequency: 0-2 drinks per day Substance Use Type: marijuana Exam Initial Vital Signs Initial Vital Signs: Vital Signs Temperature 98.2 F 05/02/22 23:57 Pulse Rate 106 H 05/02/22 23:57 Respiratory Rate 18 05/02/22 23:57 Blood Pressure 126/72 05/02/22 23:57 Pulse Oximetry 97 05/02/22 23:57 Oxygen Delivery Method 05/02/22 23:57 GENERAL: Alert pleasant 22-year-old female and in no acute distress. HEENT: Head atraumatic,EOMI, pupils reactive, face symmetric, moist mucous membranes CARDIOVASCULAR: Regular rate and rhythm without murmurs, rubs or gallops. RESPIRATORY: Breath sounds equal bilaterally, no wheezes rales or rhonchi. Coughing with deep breaths no wheezing no respiratory distress ABDOMEN: Soft, nontender. Normoactive bowel sounds all 4 quadrants. No guarding or rebound. EXTREMITIES: Normal range of motion, no clubbing or edema. Neurovascularly intact NEUROLOGICAL: Alert and oriented x4. SKIN: Warm, dry, no laceration, no petechiae, no rashes or lesions. Course Orders Ordered: ED Orders 05/02/22 23:51 XR chest 1V Stat COVID19 -Nasal RAPID/Pre-Proc Stat Discontinued Medications Albuterol (Albuterol Hfa Prepack) 1 box MISC SEEINSTR ONE Stop: 05/03/22 03:36 Last Admin: 05/03/22 03:42 Dose: 1 box Documented By: MARIO Vital Signs Vital signs: Vital Signs - 8 hr 05/02/22 23:57 Temperature 98.2 F Pulse Rate 106 H Respiratory Rate 18 Blood Pressure 126/72 Pulse Oximetry 97 Oxygen Delivery Method Room Air MDM - SOB/Dyspnea Lab Data Labs: Lab Results 05/03/22 Range/Units 00:05 SARS-CoV-2 (PCR) Negative (Negative) Imaging Data Chest x-ray: Radiologist's Impression: PROCEDURE:? XR CHEST 1V ? INDICATIONS:? cough ? TECHNIQUE:? One view of the chest was acquired.? ? COMPARISON:? [facility], , XR CHEST 1V, 09/28/2019, 20:39. ? FINDINGS:? ? Surgical changes and devices:? None.? ? Lungs and pleura:? Lungs are clear.? No pleural effusions or pneumothorax.? ? Mediastinum:? Mediastinal contours appear normal.? Heart size is normal.? ? Bones and chest wall:? No suspicious bony lesions.? Overlying soft tissues appear unremarkable.? ? IMPRESSION:? ? 1.? No acute cardiopulmonary disease. MDM Narrative Medical decision making narrative: Patient is a healthy 22-year-old female who presents with nonproductive cough ongoing for a couple days. She is not hypoxic or in any sort of respiratory distress. COVID and viral panel today is negative although previously positive. X-ray does not show any abnormality. She is afebrile. She has reactive airway like symptoms consistent with coughing and deep breaths. She is given albuterol and spacer here. She is a hard or. Will try a short course of steroid and cough syrup. At this time she is not require any further workup or evaluation. Symptoms are likely related to recent COVID infection Discharge Plan Departure Patient Disposition: Home Clinical Impression: Reactive airway disease Instructions: DI for Reactive Airway Disease-Adult Activity Restrictions/Additional Instructions: *You have been diagnosed with reactive airway *What to do: At this time your viral panel is negative x-ray does show any pneumonia. *Continue to take medications as directed Albuterol 1-2 puffs every 4 hours if needed for coughing Prednisone 40 mg once a day for 5 days Hydrocodone/homatropine 5 mL every 6 hours if needed for coughing or specifically at night to help with sleep *Follow up with your primary care provider in 2-3 days or call [phone] *Return to ER if you should have fever chills cough shortness of breath [or] any new, worsening or concerning symptoms CONTROLLED SUBSTANCE DISCHARGE (Narcotoic/benzodiazepine/Flexeril/Phenergan) 1. You have been prescribed narcotic medications, it does have acetaminophen/Tylenol/paracetamol in it, DO NOT TAKE MORE THAN 4,00mg in 24 hours of Tylenol. TRAMADOL DOES NOT CONTAIN TYLENOL 2. Please understand that we cannot provide further refills of narcotics, benzodiazepines or controlled substances through the ED and her pain management will need to be through your provider. 3. While on these medications you cannot drive or operate heavy machinery. 4. You cannot sign legal documents or perform any duties such as this. 5. As long as you're taking opiate pain medications he should also be taking a stool softener such as Colace, Dulcolax, MiraLAX or prune juice, to help avoid constipation. Prescriptions: New hydrocodone-homatropine 5-1.5 mg/5 mL syrup 5 ml PO Q6H PRN (Reason: cough) Qty: 100 0RF prednisone 20 mg tablet 40 mg PO DAILY Qty: 10 0RF cefdinir 300 mg capsule 300 mg PO Q12H Qty: 20 0RF No Action cyclobenzaprine 10 mg tablet 10 mg PO BEDTIME PRN (Reason: muscle spasm) Qty: 14 0RF cyclobenzaprine 10 mg tablet 10 mg PO TID PRN (Reason: muscle spasm) Qty: 14 0RF ketorolac 10 mg tablet 10 mg PO Q6H PRN (Reason: pain) Qty: 14 0RF cephalexin 500 mg capsule 500 mg PO BID Qty: 14 0RF Stand Alone Forms: Patient Portal/API
[2022-05-03] MEDS: ALBUTEROL HFA PREPACK 1 BOX MISC (03:42)
[2022-05-03 03:55] VITALS: BP 122/64; PULSE 93; RESP 20; O2SAT 96
== END 2022-05-03 03:56 | disposition home or self-care (01) ==
PROVIDERS: Emergency Provider Emergency Medicine
DX: J45.909 Unspecified asthma, uncomplicated (principal); R05.9 Cough, unspecified; Z20.822 Contact with and (suspected) exposure to COVID-19
CPT/HCPCS: 71045; 87635; 99281; 99283; C9803

== ENCOUNTER 2022-08-16 14:40 | Emergency (ER) | payer OTHER, MEDICAID, SELFPAY ==
[2022-08-16 14:41] VITALS: BP 121/78; PULSE 88; RESP 18; TEMP 36.9; O2SAT 98; BMI 47.4
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
[2022-08-16 16:49] VITALS: BP 118/67; PULSE 81; RESP 18; O2SAT 100
== END 2022-08-16 16:50 | disposition home or self-care (01) ==
PROVIDERS: Emergency Provider Nurse Practitioner Critical Care Medicine
DX: S06.0X0A Concussion without loss of consciousness, initial encounter (principal); V89.2XXA Person injured in unspecified motor-vehicle accident, traffic, initial encounter
CPT/HCPCS: 70450; 99281; 99283